=== PATIENT | male | born 1930 | race Caucasian/White ===

== ENCOUNTER 2018-09-24 00:16 | Observation (INO) | payer MEDICARE, OTHER ==
[2018-09-24 01:23] LABS: Troponin I Less than 0.010 ng/mL (< 0.028)
[2018-09-24] MEDS ORDERED: Ondansetron ODT 4 MG TAB SL PRN (04:51)
[2018-09-24] MEDS ORDERED: Acetaminophen 325 MG TAB PO PRN (04:51)
[2018-09-24] MEDS ORDERED: Ondansetron PF 4 MG/2 ML Vial IVP PRN (04:51)
[2018-09-24 05:26] VITALS: BMI 25.7
--- NOTE | 2018-09-24 07:12 | HP ---
PRIMARY CARE DOCTOR: Dr. Roverto Simms. CODE STATUS: Full code. TIME OF EVALUATION: 06:00 a.m. CHIEF COMPLAINT: High blood pressure and dizziness. HISTORY OF PRESENT ILLNESS: This is an 87-year-old male patient with past medical history of coronary artery disease, GERD, hypertension, came to the hospital after having an episode of sudden onset dizziness, associated with high blood pressure with no clear triggers, no alleviating factors associated, also with nausea, and vomiting. The patient got some treatment in [facility] but got no improvement and was transferred to the hospital here. The blood pressure got in control and symptoms have disappeared. The patient was examined by myself now, and the patient is in no distress, sleeping comfortable, symptoms on presentation were severe. REVIEW OF SYSTEMS: CONSTITUTIONAL: No fever, chills, or generalized weakness. RESPIRATORY: No cough, sputum production, or shortness of breath. CARDIOVASCULAR: No chest pain or palpitation. The patient has hypertension. GASTROINTESTINAL: The patient had nausea, vomiting. No diarrhea. No abdominal pain. UNPAID INTERN: The patient had dizziness, headache, feeling lightheaded, and also with unsteady gait due to dizziness. GENITOURINARY: No burning on urination. EXTREMITIES: No leg swelling. All other systems were reviewed and negative except for the findings mentioned above. PAST MEDICAL HISTORY: Was reviewed and then reported in HPI. PAST SURGICAL HISTORY: No surgical history. FAMILY HISTORY: Reviewed and noncontributory to current presentation. PSYCHIATRIC HISTORY: No history of suicidal ideation. No history of homicidal ideation. No psych history. SOCIAL HISTORY: No alcohol. No drugs. The patient is a former smoker. KNOWN ALLERGIES: Known allergy to penicillin. REPORTED MEDICATIONS: Aspirin, isosorbide, pantoprazole, and metoprolol. PHYSICAL EXAMINATION: VITAL SIGNS: On presentation, blood pressure 216/96, heart rate 62, respiratory rate was 18, temperature 97.9, pain 0/10, oxygen saturation 97% on room air. GENERAL APPEARANCE: The patient is alert, oriented, no acute distress. HEENT: Eyes, normal conjunctivae. Moist oral mucosa. Anicteric. No JVD. RESPIRATORY: Bilateral air entry. No rales. No wheezing. Symmetric expansion. CARDIOVASCULAR: Normal rate. Regular rhythm. No murmurs. No gallop. No edema. ABDOMEN: Soft. Normal bowel sounds. MUSCULOSKELETAL: Baseline range of motion and strength. SKIN: Warm and intact. No pallor. No rash. No redness. Capillary refill seems to be intact. NEURO: No evidence of any new focal weakness. Cranial nerves seem to be intact. PSYCH: The patient is in good mood. No anxiety. Optimal judgment. DIAGNOSTIC STUDIES: EKG was reviewed and had no evidence of ischemia, also discussed with the ER physician. Chest x-ray was reviewed. The patient had no evidence of acute cardiopulmonary disease. Brain CT was reviewed. The patient has no evidence of acute intracranial abnormalities. LABORATORY DATA: The labs were reviewed. The patient has a negative troponin. White count 9.3, hemoglobin 13, MCV 90, platelet count 182. Chemistry: Serum potassium 4.1, sodium 137, potassium 4.3, chloride 101, carbon dioxide 25, anion gap 15, BUN 12, creatinine 0.78, and glucose 139. LFTs were negative. Beta- natriuretic peptide 438, albumin 3.9. ASSESSMENT AND PLAN: The patient will be placed in the hospital with following medical problems: 1. Hypertensive urgency. The patient has some early stage of hypertensive encephalopathy with dizziness, blurred vision, nausea, vomiting; . The patient had no other significant symptoms, when I saw him, he was basically sleeping. We will control the blood pressure, reconcile home medications. 2. Deep vein thrombosis prophylaxis. 3. History of coronary artery disease, reported. Reconcile home medications. Adjust treatment as needed. As of now, there is no evidence of any cardiovascular damage. 4. History of gastroesophageal reflux disease, reconcile home medications. Job ID: [id number] MTDD
[2018-09-24] MEDS ORDERED: cloNIDine 0.1 MG TAB PO PRN (08:44)
[2018-09-24] MEDS ORDERED: Aspirin 81 mg Enteric Coated Tablet PO SCH (09:00)
[2018-09-24] MEDS ORDERED: Enoxaparin Sodium 40 MG/0.4 ML SYRINGE SC SCH (09:00)
[2018-09-24] MEDS ORDERED: Isosorbide Mononitrate 20 MG TAB PO SCH (09:00)
[2018-09-24 12:04] VITALS: BP 140/65; TEMP 98.2
--- NOTE | 2018-09-24 19:13 | DIS ---
DATE OF ADMISSION: 09/24/2018 DATE OF DISCHARGE: 09/24/2018 CHIEF COMPLAINT ON ADMISSION: Dizziness. DISCHARGE DIAGNOSES: 1. Hypertensive urgency, resolved. 2. Dizziness consistent with vertigo, unclear if related to above, also resolved. Differential includes hypertensive encephalopathy. 3. Gastroesophageal reflux disease. 4. Remote history of coronary artery disease, stable. BRIEF HOSPITAL COURSE: The patient is a very pleasant 87-year-old gentleman with past medical history significant for coronary artery disease and hypertension, who presented to the hospital after experiencing an episode of dizziness at home. Reports sudden onset of dizziness and felt as if the room were spinning. He found difficult to ambulate because of his symptoms. Associated symptoms included nausea and vomiting. He presented to [facility], and eventually was transferred to our facility for higher level of care. On arrival, the patient's blood pressure was 190/91. His presenting symptoms of dizziness have resolved at this time. The patient was given his home medications of metoprolol and isosorbide along with p.r.n. clonidine, with good response in the patient's blood pressure. The patient tells me he does have a history of vertigo in the past, which was relieved with meclizine. Upon my exam, the patient feels well, back to baseline. His blood pressure has been in the 140s systolic. Brain CT was negative for any intracranial abnormality. He has ambulated halls and is non-focal. Lab work was largely unremarkable, and his troponin was negative x2. DISPOSITION: Home. DISCHARGE CONDITION: Stable. DISCHARGE INSTRUCTIONS AND FOLLOWUP: The patient will be discharged home with new medications of p.r.n. clonidine as well as p.r.n. meclizine. The patient will continue to monitor his blood pressure at home and monitor his symptoms. He will follow up with his primary care physician, Dr. Van within the next week. The patient has ambulated in the halls today without any issue. He has had no further symptoms. The patient will be discharged home in good condition today. Job ID: [id number] [facility]
== END 2018-09-24 13:31 | disposition home or self-care (01) ==
LOC: ERS 00:16 → 2SW 00:55
PROVIDERS: ADMIT Hospitalist; ATTEND Hospitalist
DX: I16.0 Hypertensive urgency (principal); R42 Dizziness and giddiness; K21.9 Gastro-esophageal reflux disease without esophagitis; I25.10 Atherosclerotic heart disease of native coronary artery without angina pectoris; Z87.891 Personal history of nicotine dependence; Z88.0 Allergy status to penicillin; Z79.82 Long term (current) use of aspirin; Z79.899 Other long term (current) drug therapy
CPT/HCPCS: 36415; 84484; J1650

== ENCOUNTER 2018-09-24 17:11 | Inpatient (IN) | payer MEDICARE, OTHER ==
[2018-09-24 17:42] LABS: #Eosinphils 0.1 thou/uL (0.0-0.7); #Lymphocytes 1.2 thou/uL (1.20-3.40); #Monocytes 0.7 thou/uL (0.11-0.59); #Neutrophils 7.7 thou/uL (1.40-6.50); %Basophils 0.5 % (0.0-1.0); %Eosinophils 0.8 % (0.0-10.0); %Lymphocytes 12.1 % (21.0-51.0); %Monocytes 7.1 % (0.0-10.0); %Neutrophils 79.5 % (42.0-75.0); Hemoglobin 13.9 g/dL (14.0-18.0); Mean Corpuscular HGB CONC 34.3 g/dL (32.0-36.0); Mean Corpuscular Hemoglobin 32.4 pg (27.0-31.0); Mean Corpuscular Volume 94.4 fL (78.0-98.0); Mean Platelet Volume 7.5 fL (7.4-10.4); Platelet Count 193 thou/uL (130-400); RBC Distribution Width 11.7 % (11.5-14.5); Red Blood Cell (RBC) Count 4.29 mill/uL (4.70-6.10); White Blood Cell (WBC) Count 9.7 thou/uL (4.8-10.8)
[2018-09-24] MEDS ORDERED: niCARdipine 20MG In NaCl 20 MG/200 ML BAG ONE (17:57)
[2018-09-24] MEDS ORDERED: Aspirin Chewable 81 MG TAB ONE (17:57)
[2018-09-24 18:07] LABS: ALT (SGPT) 17 U/L (8-55); AST (SGOT) 20 U/L (5-34); Alkaline Phosphatase 74 U/L (40-150); Anion Gap 13 mmol/L (10-20); BUN (Urea Nitrogen) 14 mg/dL (8.4-25.7); Calc. Creatinine Clearance 0 mL/min (70-130); Calcium 9.1 mg/dL (7.8-10.44); Carbon Dioxide 26 mmol/L (23-31); Chloride 102 mmol/L (98-107); Estimated GFR-MDRD 83; Globulin 2.5 g/dL (2.4-3.5); Glucose 121 mg/dL (83-110); Potassium 4.1 mmol/L (3.5-5.1); Protein, Total 6.5 g/dL (5.8-8.1); Sodium 137 mmol/L (136-145)
--- NOTE | 2018-09-24 18:07 | CT ---
Exam: Head CT without contrast HISTORY: Vertigo. Dizziness. Altered mental status. COMPARISON: 09/23/2018 FINDINGS: Limited evaluation due to motion. Hemorrhage: No intraparenchymal hemorrhage or extra-axial hematoma. Brain parenchyma: Cortical hawthorne-white matter differentiation is preserved. No mass effect or midline shift. Basilar cisterns are patent.Stable chronic small vessel ischemic changes Ventricular system: Ventricles and sulci are patent and symmetric. Calvarium: Intact. Sinuses and mastoid air cells: Minimal left maxillary sinus disease. IMPRESSION: 1. No significant interval change. 2. No acute intracranial process. 3. Limited evaluation due to motion degradation.
[2018-09-24] MEDS ORDERED: Acetaminophen 325 MG TAB PO PRN (20:26)
[2018-09-24] MEDS ORDERED: Ondansetron PF 4 MG/2 ML Vial IVP PRN (20:26)
[2018-09-24] MEDS ORDERED: Acetaminophen 650 MG Suppository PR PRN (20:26)
[2018-09-24] MEDS ORDERED: Ondansetron ODT 4 MG TAB PO PRN (20:26)
[2018-09-24 20:35] LABS: Bilirubin Negative (Negative); Blood, Urine Negative (Negative); Clarity Clear (Clear); Glucose, Urine (Dipstick) Normal (Negative); Leukocyte Negative Leu/uL (Negative); Nitrite Negative (Negative); Protein, Urine (Dipstick) Negative (Neg-Trace); RBC/HPF 0-3 HPF (0-3); Squamous Epithelial 0-3 HPF (0-3); Urobilinogen Normal mg/dL (Less than 2); WBC/HPF 0-3 HPF (0-3)
[2018-09-24 20:39] LABS: Bacteria/HPF None Seen HPF (None Seen)
[2018-09-24 21:32] VITALS: BMI 24.9
[2018-09-24 21:34] LABS: Troponin I Less than 0.010 ng/mL (< 0.028)
--- NOTE | 2018-09-24 22:03 | HP ---
PRIMARY CARE PHYSICIAN: Kayce Steinberg MD CODE STATUS: Full code. TIME OF EVALUATION: 7:40 p.m. CHIEF COMPLAINT: Dizziness. HISTORY OF PRESENT ILLNESS: This is an 87-year-old male patient. The patient was recently discharged from the hospital. The patient presented yesterday with the same symptoms. Symptoms improved by self. I examined myself the patient earlier yesterday, and he was sleeping comfortable. No symptoms at all. The patient continued to do well, and he was discharged. Once he got the home, the patient had another episode of feeling very dizzy and feeling that he was about to fall, with no clear triggers. No alleviating factors. The symptoms started suddenly. This time, he has some associated chest pain, symptoms are severe, and he decided to come back to the hospital. REVIEW OF SYSTEMS: CONSTITUTIONAL: The patient had no fever or chills. The patient has generalized weakness. RESPIRATORY: No cough, sputum production, or shortness of breath. CARDIOVASCULAR: The patient has reported chest pain including symptoms and palpitations. GASTROINTESTINAL: Nausea. No vomiting, diarrhea, or abdominal pain. 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 The patient was feeling lightheaded. The patient has unsteady gait. No headache. GENITOURINARY: No burning on urination. EXTREMITIES: No leg swelling. All other systems were reviewed and negative except for the findings mentioned above. PAST MEDICAL HISTORY: Positive for coronary artery disease, GERD, hypertension. PAST SURGICAL HISTORY: The patient has no surgical history. PSYCHIATRIC HISTORY: No psych history. SOCIAL HISTORY: No alcohol. No drugs. Former smoker. The patient quit smoking more than 10 years ago. Lives with family. Very dependable. ALLERGIES: KNOWN ALLERGY TO PENICILLIN. REPORTED MEDICATIONS: 1. Aspirin. 2. Isosorbide mononitrate. 3. Pantoprazole. 4. Metoprolol. PHYSICAL EXAMINATION: VITAL SIGNS: On presentation blood pressure of 193/109 with heart rate 68, respiratory rate was 14, temperature 97.8, oxygen saturation was 95% on room air. GENERAL: The patient is alert, oriented, no acute distress. HEENT: Eyes, normal conjunctivae. Moist oral mucosa. Anicteric. No JVD. RESPIRATORY: Bilateral air entry. No rales. No wheezes. Symmetric expansion. CARDIOVASCULAR: Normal rate and regular rhythm. No murmurs. No gallop. No edema. ABDOMEN: Soft. Normal bowel sounds. MUSCULOSKELETAL: Baseline range of motion and strength. SKIN: Warm, intact. No pallor. No rash. No redness. Capillary refill seems to be intact. NEUROLOGIC: No evidence of any new focal weakness. Cranial nerves seem to be intact. PSYCH: The patient is in good mood. No anxiety. Optimal judgment. DIAGNOSTIC DATA: EKG, this patient has normal sinus rhythm with a rate of 65 with QT corrected at 449. Brain CT was done. The patient had no significant interval changes. No acute intracranial process. Limited evaluation due to motion degradation. LABORATORY DATA: Hematology; white count 9.7, hemoglobin 13.9, MCV 94.4, platelet count 193. Chemistry; sodium 137, potassium 4.1, chloride 102, carbon dioxide 26, anion gap 13, BUN 14, creatinine 0.87, GFR 83, glucose 121, calcium 9.1. Total bilirubin 1.0, AST 20, ALT 17, alkaline phosphatase 24. Troponin 0.023. Serum total protein 6.5 with albumin 4.0, globulin 2.5, albumin to globulin ratio is 1.6. Urine was done, was negative. ASSESSMENT AND PLAN: The patient will be placed in the hospital with following medical problems: 1. Hypertensive emergency. The patient presented with very high blood pressure and symptoms of dizziness, headache, feeling lightheaded. The patient also have some possible ataxia. The patient had been placed on Cardizem drip, and blood pressure has been in control. The patient has no symptoms at this point. The patient will be placed in ICU. We will monitor closely. The patient will receive echo, MRI, and carotid Doppler. Trying to find any source of possible stroke given the symptoms started suddenly. We will monitor closely. By the time of my examination, the patient is totally asymptomatic. Other etiology that will rule out will be arrhythmia. The patient will be placed on the monitor. 2. History of coronary artery disease, this problem is chronic, seems to be stable. We will trend troponins. 3. History of gastroesophageal reflux disease, reconcile home medications. 4. Deep venous thrombosis prophylaxis. Job ID: [id number]
[2018-09-24] MEDS ORDERED: niCARdipine 25 MG in Sodium Chloride 0.9% 250 ML 240 ML IVPB PRN (22:19)
[2018-09-25 00:25] LABS: Troponin I Less than 0.010 ng/mL (< 0.028)
[2018-09-25 04:20] LABS: #Eosinphils 0.2 thou/uL (0.0-0.7); #Lymphocytes 2.1 thou/uL (1.20-3.40); #Monocytes 0.8 thou/uL (0.11-0.59); #Neutrophils 4.5 thou/uL (1.40-6.50); %Basophils 0.6 % (0.0-1.0); %Eosinophils 2.8 % (0.0-10.0); %Monocytes 10.3 % (0.0-10.0); %Neutrophils 59.3 % (42.0-75.0); Hemoglobin 13.5 g/dL (14.0-18.0); Mean Corpuscular HGB CONC 34.1 g/dL (32.0-36.0); Mean Corpuscular Volume 93.9 fL (78.0-98.0); Mean Platelet Volume 7.6 fL (7.4-10.4); Platelet Count 179 thou/uL (130-400); RBC Distribution Width 11.6 % (11.5-14.5); Red Blood Cell (RBC) Count 4.21 mill/uL (4.70-6.10); White Blood Cell (WBC) Count 7.6 thou/uL (4.8-10.8)
[2018-09-25 04:36] LABS: Anion Gap 10 mmol/L (10-20); BUN (Urea Nitrogen) 16 mg/dL (8.4-25.7); Calc. Creatinine Clearance 61 mL/min (70-130); Calcium 9.3 mg/dL (7.8-10.44); Carbon Dioxide 27 mmol/L (23-31); Cardiac Risk 2.9 (Less than 4.5); Chloride 106 mmol/L (98-107); Cholesterol 165 mg/dl (< 200 Desired); Estimated GFR-MDRD Greater than 90; Glucose 103 mg/dL (83-110); HDL Cholesterol 57 mg/dL (>60 Neg Risk); LDL Cholesterol, Calculated 92 mg/dL; Potassium 4.1 mmol/L (3.5-5.1); Sodium 139 mmol/L (136-145); Triglycerides 81 mg/dL (Less than 150)
[2018-09-25] MEDS ORDERED: MECLIZINE HCL 25 MG PO PRN (06:51)
[2018-09-25] MEDS ORDERED: cloNIDine 0.1 MG TAB PO PRN (06:51)
[2018-09-25] MEDS ORDERED: Sodium Chloride 0.65% Nasal 44 ML BOT EA NARE PRN (06:52)
[2018-09-25] MEDS ORDERED: Bisacodyl 10 MG SUPP PR PRN (06:52)
[2018-09-25] MEDS ORDERED: Artificial Tears 18 DROP/0.9 ML EA EYE PRN (06:52)
[2018-09-25] MEDS ORDERED: Loratadine 10 MG TAB PO PRN (06:52)
[2018-09-25] MEDS ORDERED: Diabetic Tussin 200 MG/10 ML UDCUP PO PRN (06:52)
[2018-09-25] MEDS ORDERED: Senokot S 8.6-50 MG TAB PO PRN (06:52)
[2018-09-25] MEDS ORDERED: Cepastat Lozenges 1 LOZ PO PRN (06:52)
[2018-09-25] MEDS ORDERED: Calcium Carbonate 500 MG ChewTAB PO PRN (06:52)
[2018-09-25] MEDS ORDERED: hydrALAZINE 20 MG/ML VIAL SLOW IVP PRN (06:52)
[2018-09-25] MEDS ORDERED: Loperamide HCl 2 MG CAP PO PRN (06:52)
[2018-09-25] MEDS ORDERED: Meclizine HCl 25 MG TAB PO PRN (07:13)
--- NOTE | 2018-09-25 07:58 | ULT ---
EXAM: Carotid vascular duplex with color and spectral Doppler imaging: HISTORY: TIA COMPARISON: None FINDINGS: Evidence for intimal thickening of both proximal ICAs. Right ICA: PSV: 85 cm/s EDV: 19 cm/s ICA/CCA ratio: 1.3 Left ICA: PSV: 107 cm/s EDV: 28 cm/s ICA/CCA ratio: 1.2 Antegrade flow is seen in both vertebral arteries.. IMPRESSION: No evidence for hemodynamically significant ICA stenosis. 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
[2018-09-25] MEDS: Enoxaparin Sodium 40 MG/0.4 ML SYRINGE SC SCH (09:09)
[2018-09-25] MEDS: Aspirin 81 mg Enteric Coated Tablet PO SCH (09:09)
[2018-09-25] MEDS: Aspirin 300 MG Suppository PR SCH (09:10)
[2018-09-25] MEDS: Isosorbide Mononitrate 20 MG TAB PO SCH ×2 (09:30→20:51)
--- NOTE | 2018-09-25 10:03 | MRI ---
MRI BRAIN WITHOUT CONTRAST: Date: 09/25/18 Multiplanar, multisequential imaging of brain obtained. INDICATION: Vertigo, dizziness, altered mental status. TIA. FINDINGS: There is mild cortical volume loss. Moderate chronic ischemic white matter changes noted in both cere bral hemispheres. No evidence of restricted diffusion. No evidence of acute infarct or mass. 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 The intracranial internal carotid arteries and proximal cerebral arteries demonstrate expected flow-v oids. Basilar artery shows expected flow-void. Paranasal sinuses appear clear. IMPRESSION: Moderate chronic ischemic white matter changes. No acute process identified. POS: OFF
--- NOTE | 2018-09-25 11:47 | PDOC.PN ---
- Subjective Encounter Start Date: 09/25/18 Encounter Start Time: 10:20 -: old records requested/rev Patient seen and examined. No new complaints. No overnight events - Objective Resuscitation Status - Order Detail: 09/24/18 20:26 Resuscitation Status Routine Resuscitation Status: DNAR: NO Resuscitation Discussed with: as stated by pt MAR Reviewed: Yes Vital Signs & Weight: Vital Signs (12 hours) Temp 09/25/18 08:00 98.3 F 09/25/18 04:00 98.4 F 09/25/18 00:00 98.1 F Weight Weight 149 lb 14.629 oz Most Recent Monitor Data Heart Rate from ECG 65 NIBP 176/81 NIBP BP-Mean 112 Respiration from ECG 17 SpO2 94 I&O: 09/24/18 09/25/18 09/26/18 06:59 06:59 06:59 Intake Total 0 360 Output Total 250 180 Balance -250 180 Result Diagrams: 09/25/18 04:08 09/25/18 04:08 EKG Reviewed by me: Yes Phys Exam - Physical Examination Constitutional: NAD HEENT: PERRLA, moist MMs, sclera anicteric Neck: no JVD, supple Respiratory: no wheezing, no rales, no rhonchi Cardiovascular: RRR, no significant murmur, no rub Gastrointestinal: soft, non-tender, no distention, positive bowel sounds Musculoskeletal: no edema, pulses present Neurological: non-focal, normal sensation Psychiatric: normal affect, A&O x 3 Skin: no rash, normal turgor Dx/Plan (1) Dizziness Code(s): R42 - DIZZINESS AND GIDDINESS Status: Acute (2) Hypertensive emergency Code(s): I16.1 - HYPERTENSIVE EMERGENCY Status: Acute (3) CAD (coronary artery disease) Code(s): I25.10 - ATHSCL HEART DISEASE OF [place] CORONARY ARTERY W/O ANG PCTRS Status: Chronic (4) GERD (gastroesophageal reflux disease) Code(s): K21.9 - GASTRO-ESOPHAGEAL REFLUX DISEASE WITHOUT ESOPHAGITIS Status: Chronic (5) Hypertension Code(s): I10 - ESSENTIAL (PRIMARY) HYPERTENSION Status: Chronic - Plan cont current plan of care * pt is off cardene drip * MRI, carotid US are normal * transfer to stroke floor * start PT/OT * adjust BP meds today * expecting discharge tomorrow * medication reviewed as below * symptomatic treatment. Review of Systems - Review of Systems ENT: negative: Ear Pain, Ear Discharge, Nose Pain, Nose Discharge, Nose Congestion, Mouth Pain, Mouth Swelling, Throat Pain, Throat Swelling, Other Respiratory: negative: Cough, Dry, Shortness of Breath, Hemoptysis, SOB with Excertion, Pleuritic Pain, Sputum, Wheezing Cardiovascular: negative: chest pain, palpitations, orthopnea, paroxysmal nocturnal dyspnea, edema, light headedness, other Gastrointestinal: negative: Nausea, Vomiting, Abdominal Pain, Diarrhea, Constipation, Melena, Hematochezia, Other Genitourinary: negative: Dysuria, Frequency, Incontinence, Hematuria, Retention , Other Musculoskeletal: negative: Neck Pain, Shoulder Pain, Arm Pain, Back Pain, Hand Pain, Leg Pain, Foot Pain, Other - Medications/Allergies Allergies/Adverse Reactions: Allergies Allergy/AdvReac Type Severity Reaction Status Date / Time Penicillins Allergy Unknown Verified 09/24/18 21:21 Medications: Current Medications Acetaminophen (Tylenol) 650 mg PO Q4H PRN PRN Reason: Headache/Fever/Mild Pain (1-3) Acetaminophen (Tylenol) 650 mg FL Q4H PRN PRN Reason: Headache/Fever/Mild Pain (1-3) Artificial Tears (Tears Naturale) 2 drop EA EYE PRN PRN PRN Reason: Dry Eyes Aspirin (Aspirin) 300 mg FL DAILY [facility] Last Admin: 09/25/18 09:10 Dose: Not Given Aspirin (Ecotrin) 81 mg PO DAILY [facility] Last Admin: 09/25/18 09:09 Dose: 81 mg Bisacodyl (Dulcolax) 10 mg FL DAILYPRN PRN PRN Reason: Constipation Calcium Carbonate (Tums) 1,000 mg PO Q4H PRN PRN Reason: Heartburn or Indigestion Clonidine (Catapres) 0.1 mg PO Q4H PRN PRN Reason: SBP Greater Than 180 Enoxaparin Sodium (Lovenox) 40 mg SC 09 [facility] Last Admin: 09/25/18 09:09 Dose: 40 mg Guaifenesin (Robitussin Sf) 200 mg PO Q4H PRN PRN Reason: Cough Hydralazine HCl (Apresoline) 10 mg SLOW IVP Q4H PRN PRN Reason: SBP > 180 and HR < 70 Nicardipine HCl 25 mg/ Sodium (Chloride) 250 mls @ 0 mls/hr IVPB INF PRN; Protocol PRN Reason: SBP > 150 Isosorbide Mononitrate (Ismo) 20 mg PO BID [facility] Last Admin: 09/25/18 09:30 Dose: 20 mg Loperamide HCl (Imodium) 2 mg PO PRN PRN PRN Reason: Diarrhea/Loose Stools Loratadine (Claritin) 10 mg PO DAILYPRN PRN PRN Reason: Sinus Symptoms Meclizine HCl (Antivert) 25 mg PO TIDPRN PRN PRN Reason: Dizziness Metoprolol Succinate (Toprol Xl) 50 mg PO BID [facility] Last Admin: 09/25/18 09:09 Dose: 50 mg Ondansetron HCl (Zofran Odt) 4 mg PO Q6H PRN PRN Reason: Nausea/Vomiting Ondansetron HCl (Zofran) 4 mg IVP Q6H PRN PRN Reason: Nausea/Vomiting Pantoprazole Sodium (Protonix) 40 mg PO DAILY [facility] Last Admin: 09/25/18 09:09 Dose: 40 mg Senna/Docusate Sodium (Senokot S) 2 tab PO BID PRN PRN Reason: Constipation Sodium Chloride (Flush - Normal Saline) 10 ml IVF PRN PRN PRN Reason: Saline Flush Sodium Chloride ([place] Nasal [place] 0.65%) 0 ml EA NARE QIDPRN PRN PRN Reason: Nasal Congestion Throat Lozenges (Cepastat Lozenges) 1 abraham PO Q2H PRN PRN Reason: Sore Throat
--- NOTE | 2018-09-25 13:37 | CON ---
DATE OF CONSULTATION: CHIEF COMPLAINT: Possible stroke. HISTORY OF PRESENT ILLNESS: The patient is an 87-year-old man, who was brought in to the hospital following symptoms of TIA. He felt drunk. He felt that the room was swirling and this happened on September 23 and he did have one episode in the past when he was dehydrated, but this episode was more profound and stronger per the patient and he was brought here to the hospital by the family and there was no history of any weakness, numbness, or incoordination, but he felt like he was about to fall. No loss of consciousness was associated with this. He did have some chest pain and his symptoms were sudden onset. There was no history of visual problems either. PREVIOUS MEDICAL HISTORY: Positive for coronary artery disease, gastroesophageal reflux disease, and hypertension. SURGICAL HISTORY: He had cataract surgery a few years ago with intra-ocular lens implant and he thinks this might have been 5 to 6 years ago. SOCIAL HISTORY: Nonsmoker. He does not drink alcohol. 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 He lives with his . ALLERGIES: HE IS ALLERGIC TO PENICILLIN AND STATED THAT THE PATIENT HAD HIVES WITH IT AND THIS OCCURRED WHEN HE WAS IN THE [employer] AND HE WAS TOLD TO STAY AWAY FROM IT. FAMILY HISTORY: Negative for any history of stroke. MEDICATIONS: At home he takes, 1. Aspirin. 2. Isosorbide mononitrate. 3. Pantoprazole. 4. Metoprolol. REVIEW OF SYSTEMS: PULMONARY: Negative for shortness of breath or cough. GI: Negative for diarrhea, vomiting, or nausea. GENITOURINARY: Negative for any urinary dysfunction. OPHTHALMOLOGIC: Negative for any visual disturbance. NEUROLOGICAL: Positive for dizziness. ENT: Negative for any ringing in his ears or hearing loss. HEMATOLOGIC: Negative for bleeding diathesis or anemia. LABORATORY WORKUP: White count 7.6, hemoglobin 13.5, hematocrit 39.6, platelets 179. Sodium 139, potassium 4.1, chloride 106, bicarb 27, BUN 16, creatinine 0.8, glucose 103, and calcium 9.3. AST, ALT, alkaline phosphatase within normal limits. Lipid profile was within normal limits. His MRI of the brain did not show an acute stroke. He had moderate chronic ischemic white matter changes, and on the carotid Doppler study, he did not have any carotid artery disease and no stenosis was noted. PHYSICAL EXAMINATION: VITAL SIGNS: Blood pressure 176/81, pulse is 63, respiratory rate 19, and he was afebrile, temperature 98.3. GENERAL APPEARANCE: Well-built, well-nourished man, who appears comfortable in the bed. CHEST: Clear vesicular breathing. CARDIOVASCULAR: S1 and S2 heard. No murmurs. ABDOMEN: Soft and nontender. No organomegaly noted. NEUROLOGIC: Higher intellectual functions. Normal orientation to time, place, and person. Appropriate conversation. Cranial nerves, normal extraocular movements. Pupils are 2 mm, reactive bilaterally to light. No facial asymmetry noted. Normal sensation of face bilaterally and hearing was normal. Tongue midline. No atrophy noted. Normal elevation of palate. Motor, bulk normal, tone normal. Strength 5/5 throughout in upper and lower extremities in iliopsoas, hamstrings, quadriceps, ankle dorsiflexion, plantarflexion, deltoid, biceps, triceps, wrist extension and flexion, finger extension and flexion bilaterally. Deep tendon reflexes 2+ throughout in upper and lower extremities. Sensory examination normal to touch bilaterally. Cerebellar, normal [id number], [id number]. IMPRESSION: The patient who is being admitted with hypertensive emergency and posterior reversible encephalopathy syndrome as admitting diagnosis. His blood pressures have remained somewhat high through this admission and his symptoms were mainly dizziness. His MRI is negative for an acute stroke and his carotid Doppler is normal and his diagnosis is most likely consistent with hypertensive emergency rather than an acute stroke. RECOMMENDATIONS: For now, continue to give him anti-platelet agent aspirin at the same dose. Monitor his blood pressure and revise his antihypertensive regimen. He also is pending echocardiogram at this time. Please call Neurology and we will see him as needed. Job ID: [id number]
--- NOTE | 2018-09-25 18:51 | CON ---
DATE OF CONSULTATION: 09/25/2018 HISTORY OF PRESENT ILLNESS: Mr. Porter is an 87-year-old male, who was admitted to the critical care unit this morning. I was consulted because of his presence in the Critical Care. He presented with complaints of dizziness. He was noted to be hypertensive, apparently was started on a Cardene drip. The Cardene drip has since been weaned off. He has no complaints at the time of my evaluation. He had an MRI of his brain that showed white matter changes, but nothing acute. He has had a carotid Doppler that showed no obstruction. PAST MEDICAL HISTORY: Remarkable for, 1. Coronary artery disease. 2. History of reflux disease. 3. History of hypertension. 4. History of an June visit to the emergency room with hypertension. 5. History of no surgeries in the past, which is surprising. SOCIAL HISTORY: He is a former smoker, but smoked until he was in his late 70s. He is not a drinker. ALLERGIES: HE REPORTS PENICILLIN ALLERGY. MEDICATIONS: Have been reviewed. FAMILY HISTORY: Negative for lung disease in early age. REVIEW OF SYSTEMS: Ten point review of systems completed, otherwise negative. PHYSICAL EXAMINATION: VITAL SIGNS: Blood pressure is 156/86 in afternoon, heart rate was in the 60s, respiratory rate was 16, oximetry is 93% on room air. He is afebrile. HEENT: Pupils are equal. Sclerae are anicteric. Extraocular movements are intact. NECK: Supple. No lymphadenopathy. LUNGS: Clear. HEART: Regular rhythm. He has grade 2/6 systolic murmur. ABDOMEN: Soft and nontender. EXTREMITIES: Without clubbing, cyanosis, or edema. NEUROLOGIC: Grossly nonfocal. IMPRESSION: Dizziness with hypertension that is reasonably well controlled presently. He is stable to move out of the Critical Care Unit. We will sign off on transfer. TIME SPENT: This is a 70-minute consult, with greater than 50% of the time was spent on the unit coordinating care. Job ID: [id number] [facility]
[2018-09-26] MEDS: Lisinopril 10 MG TAB PO SCH (08:36)
[2018-09-26] MEDS: Isosorbide Mononitrate 20 MG TAB PO SCH ×2 (08:36→21:23)
[2018-09-26] MEDS: Aspirin 81 mg Enteric Coated Tablet PO SCH (08:36)
[2018-09-26] MEDS: Enoxaparin Sodium 40 MG/0.4 ML SYRINGE SC SCH (08:37)
[2018-09-26] MEDS: Aspirin 300 MG Suppository PR SCH (08:38)
[2018-09-26] MEDS ORDERED: Lisinopril/Hydrochlorothiazide 10 mg/12.5 mg Tablet PO SCH (09:00)
--- NOTE | 2018-09-26 10:07 | PDOC.PN ---
- Subjective Encounter Start Date: 09/26/18 Encounter Start Time: 07:10 Patient seen and examined. No new complaints. No overnight events - Objective Resuscitation Status - Order Detail: 09/24/18 20:26 Resuscitation Status Routine Resuscitation Status: DNAR: NO Resuscitation Discussed with: as stated by pt MAR Reviewed: Yes Vital Signs & Weight: Vital Signs (12 hours) Temp Pulse Resp BP Pulse Ox 09/26/18 07:46 98.0 F 69 16 176/95 H 92 L 09/26/18 04:00 97.9 F 64 18 147/78 H 94 L 09/26/18 00:00 98.4 F 63 18 150/77 H 94 L Weight Weight 149 lb 14.629 oz Most Recent Monitor Data Heart Rate from ECG 88 NIBP 176/81 NIBP BP-Mean 112 Respiration from ECG 15 SpO2 94 I&O: 09/25/18 09/26/18 09/27/18 06:59 06:59 06:59 Intake Total 0 630 480 Output Total 250 180 Balance -250 450 480 Result Diagrams: 09/25/18 04:08 09/25/18 04:08 EKG Reviewed by me: Yes Phys Exam - Physical Examination Constitutional: NAD HEENT: PERRLA, moist MMs, sclera anicteric Neck: no JVD, supple Respiratory: no wheezing, no rales, no rhonchi Cardiovascular: RRR, no significant murmur, no rub Gastrointestinal: soft, non-tender, no distention, positive bowel sounds Musculoskeletal: no edema, pulses present Neurological: non-focal, normal sensation, moves all 4 limbs Lymphatic: no nodes Psychiatric: normal affect, A&O x 3 Skin: no rash, normal turgor Dx/Plan (1) Dizziness Code(s): R42 - DIZZINESS AND GIDDINESS Status: Acute (2) Hypertensive emergency Code(s): I16.1 - HYPERTENSIVE EMERGENCY Status: Acute (3) CAD (coronary artery disease) Code(s): I25.10 - ATHSCL HEART DISEASE OF [place] CORONARY ARTERY W/O ANG PCTRS Status: Chronic (4) GERD (gastroesophageal reflux disease) Code(s): K21.9 - GASTRO-ESOPHAGEAL REFLUX DISEASE WITHOUT ESOPHAGITIS Status: Chronic (5) Hypertension Code(s): I10 - ESSENTIAL (PRIMARY) HYPERTENSION Status: Chronic - Plan cont current plan of care, PT/OT, out of bed/ambulate * neurology recommendation appreciated * medication reviewed as below * symptomatic treatment * add lisinopril * today will adjust his BP meds * ambulate as tolerated. Review of Systems - Review of Systems ENT: negative: Ear Pain, Ear Discharge, Nose Pain, Nose Discharge, Nose Congestion, Mouth Pain, Mouth Swelling, Throat Pain, Throat Swelling, Other Respiratory: negative: Cough, Dry, Shortness of Breath, Hemoptysis, SOB with Excertion, Pleuritic Pain, Sputum, Wheezing Cardiovascular: negative: chest pain, palpitations, orthopnea, paroxysmal nocturnal dyspnea, edema, light headedness, other Gastrointestinal: negative: Nausea, Vomiting, Abdominal Pain, Diarrhea, Constipation, Melena, Hematochezia, Other Genitourinary: negative: Dysuria, Frequency, Incontinence, Hematuria, Retention , Other Musculoskeletal: negative: Neck Pain, Shoulder Pain, Arm Pain, Back Pain, Hand Pain, Leg Pain, Foot Pain, Other - Medications/Allergies Allergies/Adverse Reactions: Allergies Allergy/AdvReac Type Severity Reaction Status Date / Time Penicillins Allergy Unknown Verified 09/24/18 21:21 Medications: Current Medications Acetaminophen (Tylenol) 650 mg PO Q4H PRN PRN Reason: Headache/Fever/Mild Pain (1-3) Acetaminophen (Tylenol) 650 mg AL Q4H PRN PRN Reason: Headache/Fever/Mild Pain (1-3) Artificial Tears (Tears Naturale) 2 drop EA EYE PRN PRN PRN Reason: Dry Eyes Aspirin (Aspirin) 300 mg AL DAILY [facility] Last Admin: 09/26/18 08:38 Dose: Not Given Aspirin (Ecotrin) 81 mg PO DAILY [facility] Last Admin: 09/26/18 08:36 Dose: 81 mg Bisacodyl (Dulcolax) 10 mg AL DAILYPRN PRN PRN Reason: Constipation Calcium Carbonate (Tums) 1,000 mg PO Q4H PRN PRN Reason: Heartburn or Indigestion Clonidine (Catapres) 0.1 mg PO Q4H PRN PRN Reason: SBP Greater Than 180 Enoxaparin Sodium (Lovenox) 40 mg SC 0900 [facility] Last Admin: 09/26/18 08:37 Dose: 40 mg Guaifenesin (Robitussin Sf) 200 mg PO Q4H PRN PRN Reason: Cough Hydralazine HCl (Apresoline) 10 mg SLOW IVP Q4H PRN PRN Reason: SBP > 180 and HR < 70 Isosorbide Mononitrate (Ismo) 20 mg PO BID [facility] Last Admin: 09/26/18 08:36 Dose: 20 mg Lisinopril (Zestril) 10 mg PO DAILY [facility] Last Admin: 09/26/18 08:36 Dose: 10 mg Loperamide HCl (Imodium) 2 mg PO PRN PRN PRN Reason: Diarrhea/Loose Stools Loratadine (Claritin) 10 mg PO DAILYPRN PRN PRN Reason: Sinus Symptoms Meclizine HCl (Antivert) 25 mg PO TIDPRN PRN PRN Reason: Dizziness Metoprolol Succinate (Toprol Xl) 50 mg PO BID [facility] Last Admin: 09/26/18 08:37 Dose: 50 mg Ondansetron HCl (Zofran Odt) 4 mg PO Q6H PRN PRN Reason: Nausea/Vomiting Ondansetron HCl (Zofran) 4 mg IVP Q6H PRN PRN Reason: Nausea/Vomiting Pantoprazole Sodium (Protonix) 40 mg PO DAILY [facility] Last Admin: 09/26/18 08:37 Dose: 40 mg Senna/Docusate Sodium (Senokot S) 2 tab PO BID PRN PRN Reason: Constipation Sodium Chloride (Flush - Normal Saline) 10 ml IVF PRN PRN PRN Reason: Saline Flush Sodium Chloride ([place] Nasal [place] 0.65%) 0 ml EA NARE QIDPRN PRN PRN Reason: Nasal Congestion Throat Lozenges (Cepastat Lozenges) 1 abraham PO Q2H PRN PRN Reason: Sore Throat
--- NOTE | 2018-09-26 22:10 | EKG ---
Test Reason : DIZZINESS Blood Pressure : / mmHG Vent. Rate : 065 BPM Atrial Rate : 065 BPM P-R Int : 170 ms QRS Dur : 084 ms QT Int : 432 ms P-R-T Axes : 078 048 028 degrees QTc Int : 449 ms Normal sinus rhythm Normal ECG Confirmed by ESTRELLA BOYCE ([id number]), magazine editor VIC RAY ([id number]) on 09/26/2018 10:09:24 PM Referred By: CARLI Confirmed By:ESTRELLA BOYCE
[2018-09-27 07:39] VITALS: BP 169/81; TEMP 98
[2018-09-27] MEDS: Isosorbide Mononitrate 20 MG TAB PO SCH (08:42)
[2018-09-27] MEDS: Aspirin 81 mg Enteric Coated Tablet PO SCH (08:42)
[2018-09-27] MEDS: Enoxaparin Sodium 40 MG/0.4 ML SYRINGE SC SCH (08:42)
[2018-09-27] MEDS: Lisinopril 10 MG TAB PO SCH (08:43)
[2018-09-27] MEDS: Aspirin 300 MG Suppository PR SCH (08:43)
[2018-09-27] MEDS ORDERED: Amlodipine 10 MG TAB PO SCH (09:00)
--- NOTE | 2018-09-27 09:57 | PDOC.PN ---
- Subjective Encounter Start Date: 09/27/18 Encounter Start Time: 09:40 Patient seen and examined. No new complaints. No overnight events - Objective Resuscitation Status - Order Detail: 09/24/18 20:26 Resuscitation Status Routine Resuscitation Status: DNAR: NO Resuscitation Discussed with: as stated by pt MAR Reviewed: Yes Vital Signs & Weight: Vital Signs (12 hours) Temp Pulse Resp BP Pulse Ox 09/27/18 08:42 65 09/27/18 07:39 98 F 65 16 169/81 H 92 L 09/27/18 04:00 98.1 F 66 16 156/86 H 94 L Weight Weight 149 lb 14.629 oz Most Recent Monitor Data Heart Rate from ECG 88 NIBP 176/81 NIBP BP-Mean 112 Respiration from ECG 15 SpO2 94 I&O: 09/26/18 09/27/18 09/28/18 06:59 06:59 06:59 Intake Total 630 840 Output Total 180 Balance 450 840 Result Diagrams: 09/25/18 04:08 09/25/18 04:08 Phys Exam - Physical Examination Constitutional: NAD HEENT: PERRLA, moist MMs, sclera anicteric Neck: no JVD, supple Respiratory: no wheezing, no rales, no rhonchi Cardiovascular: RRR, no significant murmur, no rub Gastrointestinal: soft, non-tender, no distention, positive bowel sounds Musculoskeletal: no edema, pulses present Neurological: non-focal, normal sensation, moves all 4 limbs Lymphatic: no nodes Psychiatric: normal affect, A&O x 3 Skin: no rash, normal turgor Dx/Plan (1) Dizziness Code(s): R42 - DIZZINESS AND GIDDINESS Status: Acute (2) Hypertensive emergency Code(s): I16.1 - HYPERTENSIVE EMERGENCY Status: Acute (3) CAD (coronary artery disease) Code(s): I25.10 - ATHSCL HEART DISEASE OF [place] CORONARY ARTERY W/O ANG PCTRS Status: Chronic (4) GERD (gastroesophageal reflux disease) Code(s): K21.9 - GASTRO-ESOPHAGEAL REFLUX DISEASE WITHOUT ESOPHAGITIS Status: Chronic (5) Hypertension Code(s): I10 - ESSENTIAL (PRIMARY) HYPERTENSION Status: Chronic - Plan cont current plan of care * medication reviewed as below * symptomatic treatment * see discharge [place]. Review of Systems - Review of Systems ENT: negative: Ear Pain, Ear Discharge, Nose Pain, Nose Discharge, Nose Congestion, Mouth Pain, Mouth Swelling, Throat Pain, Throat Swelling, Other Respiratory: negative: Cough, Dry, Shortness of Breath, Hemoptysis, SOB with Excertion, Pleuritic Pain, Sputum, Wheezing Cardiovascular: negative: chest pain, palpitations, orthopnea, paroxysmal nocturnal dyspnea, edema, light headedness, other Gastrointestinal: negative: Nausea, Vomiting, Abdominal Pain, Diarrhea, Constipation, Melena, Hematochezia, Other Genitourinary: negative: Dysuria, Frequency, Incontinence, Hematuria, Retention , Other Musculoskeletal: negative: Neck Pain, Shoulder Pain, Arm Pain, Back Pain, Hand Pain, Leg Pain, Foot Pain, Other - Medications/Allergies Allergies/Adverse Reactions: Allergies Allergy/AdvReac Type Severity Reaction Status Date / Time Penicillins Allergy Unknown Verified 09/24/18 21:21 Medications: Current Medications Acetaminophen (Tylenol) 650 mg PO Q4H PRN PRN Reason: Headache/Fever/Mild Pain (1-3) Acetaminophen (Tylenol) 650 mg MO Q4H PRN PRN Reason: Headache/Fever/Mild Pain (1-3) Amlodipine Besylate (Norvasc) 10 mg PO DAILY [facility] Last Admin: 09/27/18 08:42 Dose: 10 mg Artificial Tears (Tears Naturale) 2 drop EA EYE PRN PRN PRN Reason: Dry Eyes Aspirin (Aspirin) 300 mg MO DAILY [facility] Last Admin: 09/27/18 08:43 Dose: Not Given Aspirin (Ecotrin) 81 mg PO DAILY [facility] Last Admin: 09/27/18 08:42 Dose: 81 mg Bisacodyl (Dulcolax) 10 mg MO DAILYPRN PRN PRN Reason: Constipation Calcium Carbonate (Tums) 1,000 mg PO Q4H PRN PRN Reason: Heartburn or Indigestion Clonidine (Catapres) 0.1 mg PO Q4H PRN PRN Reason: SBP Greater Than 180 Enoxaparin Sodium (Lovenox) 40 mg SC 0900 [facility] Last Admin: 09/27/18 08:42 Dose: 40 mg Guaifenesin (Robitussin Sf) 200 mg PO Q4H PRN PRN Reason: Cough Hydralazine HCl (Apresoline) 10 mg SLOW IVP Q4H PRN PRN Reason: SBP > 180 and HR < 70 Isosorbide Mononitrate (Ismo) 20 mg PO BID [facility] Last Admin: 09/27/18 08:42 Dose: 20 mg Lisinopril (Zestril) 10 mg PO DAILY [facility] Last Admin: 09/27/18 08:43 Dose: 10 mg Loperamide HCl (Imodium) 2 mg PO PRN PRN PRN Reason: Diarrhea/Loose Stools Loratadine (Claritin) 10 mg PO DAILYPRN PRN PRN Reason: Sinus Symptoms Meclizine HCl (Antivert) 25 mg PO TIDPRN PRN PRN Reason: Dizziness Metoprolol Succinate (Toprol Xl) 50 mg PO BID [facility] Last Admin: 09/27/18 08:43 Dose: 50 mg Ondansetron HCl (Zofran Odt) 4 mg PO Q6H PRN PRN Reason: Nausea/Vomiting Ondansetron HCl (Zofran) 4 mg IVP Q6H PRN PRN Reason: Nausea/Vomiting Pantoprazole Sodium (Protonix) 40 mg PO DAILY [facility] Last Admin: 09/27/18 08:42 Dose: 40 mg Senna/Docusate Sodium (Senokot S) 2 tab PO BID PRN PRN Reason: Constipation Sodium Chloride (Flush - Normal Saline) 10 ml IVF PRN PRN PRN Reason: Saline Flush Sodium Chloride ([place] Nasal [place] 0.65%) 0 ml EA NARE QIDPRN PRN PRN Reason: Nasal Congestion Throat Lozenges (Cepastat Lozenges) 1 abraham PO Q2H PRN PRN Reason: Sore Throat
--- NOTE | 2018-09-27 10:32 | DIS ---
DATE OF ADMISSION: 09/24/2018 DATE OF DISCHARGE: 09/27/2018 PRIMARY CARE PHYSICIAN: [facility] Call admission. DISCHARGE DISPOSITION: Home. PRIMARY DISCHARGE DIAGNOSES: 1. Hypertensive emergency. 2. Dizziness due to problem #1. SECONDARY DISCHARGE DIAGNOSES: Hypertension, gastroesophageal reflux disease, and coronary artery disease. PRIMARY PROCEDURE/OPERATION: None. RADIOLOGICAL INVESTIGATION: CT brain, MRI brain, and carotid Doppler. SIGNIFICANT LABORATORY DATA: Hemoglobin 13.5, creatinine 0.80. Electrolytes normal. Cardiac enzyme negative. LFT normal. LDL 92. Urinalysis normal. DISCHARGE MEDICATIONS: 1. Aspirin 81 mg daily. 2. Isosorbide mononitrate 20 mg b.i.d. 3. Toprol-XL 50 mg b.i.d. 4. Protonix 40 mg daily. 5. Amlodipine 10 mg p.o. daily. 6. Lisinopril 10 mg p.o. daily. 7. Clonidine 0.1 mg q.4 hourly p.r.n. 8. Antivert 25 mg t.i.d. p.r.n. CONTRAINDICATION: None. CODE STATUS: DNR. INPATIENT CONSULTANTS: Dr. Indira Umaña and Dr. Kruger. TEST RESULTS PENDING ON DISCHARGE: None. ALLERGIES: PENICILLIN. DISCHARGE PLAN: Posthospital, the patient will follow up with primary care physician in 1 week. HOSPITAL COURSE: An 87-year-old male, who was admitted by Dr. Hewitt. Please see his H and P for further details. This patient was having very high blood pressure. He was just discharged from hospital, and he was having severe dizziness and head discomfort and that is why he bounced back to us in hospital. Initially, CT of brain was negative. MRI of brain was also negative for any stroke. Carotid Doppler negative for any stenosis. This patient's blood pressure was controlled with Cardene drip and subsequently, the patient was transferred to telemetry floor. His stroke workup came back negative. Neurology saw this patient and they recommended to continue his previous medication. Dr. Kruger saw because the patient was admitted in ICU. We added lisinopril and amlodipine for his better blood pressure control. The patient is completely asymptomatic at this point and he wants to go home. Overall, the patient is medically stable for discharge. The patient is seen and examined at bedside today. Please see my progress note from today for further detail. Job ID: [id number]
== END 2018-09-27 10:59 | disposition home or self-care (01) | DRG 305 ==
LOC: ERS 17:11 → CCU 18:56 → 2SE 09-25 13:18
PROVIDERS: ADMIT Internal Medicine; ATTEND Internal Medicine
DX: I16.1 Hypertensive emergency (principal); Z66 Do not resuscitate; I25.10 Atherosclerotic heart disease of native coronary artery without angina pectoris; K21.9 Gastro-esophageal reflux disease without esophagitis; I10 Essential (primary) hypertension; Z87.891 Personal history of nicotine dependence; Z88.0 Allergy status to penicillin; Z79.82 Long term (current) use of aspirin; Z79.899 Other long term (current) drug therapy
CPT/HCPCS: 36415; 70450; 70551; 80048; 80053; 80061; 81003; 84484; 85025; 93005; 93306; 93880; 96365; 96366; 96372; 99284; G0378; J1650; J7050

== ENCOUNTER 2019-04-26 09:48 | Outpatient (CLI) | payer MEDICARE, OTHER ==
--- NOTE | 2019-04-26 11:31 | ULT ---
RIGHT UPPER QUADRANT ULTRASOUND: Date: 04/26/2019 HISTORY: Gallbladder mass. FINDINGS: There is a septated cyst in the left lobe of the liver measuring 1.5 cm. There is a 3.0 cm shadowing calculus in the gallbladder with associated sludge as well. No gallbladder wall thickening or pericho lecystic fluid is seen. The common duct measures 3.0 mm in diameter. The right lobe of the liver, rig ht kidney, and visualized portions of the pancreas are unremarkable. No free fluid is seen in Morison 's pouch. IMPRESSION: 1. Cholelithiasis. 2. Left hepatic lobe cyst. POS: OFF
== END 2019-04-26 09:49 | disposition home or self-care (01) ==
LOC: SCSULT 09:48
PROVIDERS: ATTEND Internal Medicine
DX: K82.8 Other specified diseases of gallbladder (principal); K80.20 Calculus of gallbladder without cholecystitis without obstruction; K76.89 Other specified diseases of liver
CPT/HCPCS: 76705

== ENCOUNTER 2019-10-01 18:35 | Inpatient (IN) | payer MEDICARE, OTHER ==
[2019-10-01] MEDS ORDERED: Ondansetron PF 4 MG/2 ML Vial IVP PRN (21:28)
[2019-10-01] MEDS ORDERED: Acetaminophen 650 MG Suppository PR PRN (21:54)
[2019-10-01] MEDS ORDERED: Acetaminophen 325 MG TAB PO PRN (21:54)
[2019-10-01 21:55] VITALS: BMI 26.0
[2019-10-01 22:21] LABS: Lactic Acid 2.8 mmol/L (0.5-2.2)
[2019-10-01 22:22] LABS: Anion Gap 14 mmol/L (10-20); BUN (Urea Nitrogen) 17 mg/dL (8.4-25.7); Calc. Creatinine Clearance 69 mL/min (70-130); Calcium 9.2 mg/dL (7.8-10.44); Carbon Dioxide 20 mmol/L (23-31); Chloride 103 mmol/L (98-107); Estimated GFR-MDRD Greater than 90; Glucose 168 mg/dL (83-110); Magnesium 2.1 mg/dL (1.6-2.6); Potassium 3.9 mmol/L (3.5-5.1); Sodium 133 mmol/L (136-145)
[2019-10-01] MEDS: Sodium Chloride 0.9% 1,000 ML IV SCH (22:29)
--- NOTE | 2019-10-01 22:39 | PDOC.HHP ---
Hospitalist HPI - History of Present Illness Abdominal pain and vomiting History of Present Illness: Patient presents with complaints of abdominal pain that started earlier today around noon. He states it was across his abdomen and felt like an aching burning pain. Reports having issues with gastritis in the past. He reports having excessive belching and sudden episode of vomiting. He initially presented to [place] ED where he was given a GI cocktail and also given Aspirin 324 mg. He was given 4 mg of Zofran. He states his pain fully resolved after the GI cocktail. While on the ambulance and being transferred here he says he had another episode of vomiting without any preceding nausea. He had some mild discomfort that quickly eased. He has had another episode of vomiting while in the ED just a few moments ago and reports having excessive belching prior. At present he does not feel nauseated and denies any abdominal pain. Reports feeling well in recent days. Has been eating and drinking as normal. [place] any changes with his stools. Has not had any hematemesis. No fevers or chills. No chest pain or shortness of breath. Has not been diaphoretic. No headaches or dizziness. He states if it werent for the sudden vomiting that occurs, he would feel "completely normal". ED Course: EKG done on arrival here showed T wave inversions involving the inferior leads and V3. HR 70, NSR. Hospitalist ROS - Review of Systems Constitutional: denies: fever, chills, sweats, weakness, malaise, other Eyes: denies: pain, vision change, conjunctivae inflammation, eyelid inflammation, redness, other ENT: denies: ear pain, ear discharge, nose pain, nose discharge, nose congestion , mouth pain, mouth swelling, throat pain, throat swelling, other Respiratory: denies: cough, dry, shortness of breath, hemoptysis, SOB with excertion, pleuritic pain, sputum, wheezing, other Cardiovascular: denies: chest pain, palpitations, orthopnea, paroxysmal noc. dyspnea, edema, light headedness, other Gastrointestinal: reports: vomiting, abdominal pain. denies: nausea, diarrhea, constipation, melena, hematochezia, other Genitourinary: denies: dysuria, frequency, incontinence, hematuria, retention, other Musculoskeletal: denies: neck pain, shoulder pain, arm pain, back pain, hand pain, leg pain, foot pain, other Skin: denies: rash, lesions, kay, bruising, other Neurological: denies: weakness, numbness, incoordination, change in speech, confusion, seizures, other Hospitalist History - Past Medical History Cardiac: reports: CAD, HTN Gastrointestinal: reports: GERD - Past Surgical History Past Surgical History: reports: Cataract Removal - Family History Family History: reports: no pertinent history - Social History Smoking Status: Former smoker Alcohol: reports: None Drugs: reports: none Living Situation: With Family Activity level: independent ambulation - Exam General Appearance: NAD Eye: PERRL, anicteric sclera ENT: normocephalic atraumatic, no oropharyngeal lesions, moist mucosa Neck: supple, symmetric, no lymphadenopathy Heart: RRR, no murmur, no gallops, no rubs, normal peripheral pulses Respiratory: CTAB, no wheezes, no rales, no ronchi, normal chest expansion Gastrointestinal: soft, non-tender, non-distended, normal bowel sounds, no palpable masses, no guarding, no rigidity Extremities: no edema Skin: normal turgor, no lesions, no rashes Neurological: cranial nerve grossly intact, normal sensation to touch, no weakness, no focal deficits Musculoskeletal: normal tone, normal strength, no muscle wasting Psychiatric: normal affect, normal behavior, A&O x 3 Hospitalist Results - Labs Result Diagrams: 10/01/19 21:58 Lab results: Sodium 133 mmol/L (136-145) L 10/01/19 21:58 Potassium 3.9 mmol/L (3.5-5.1) 10/01/19 21:58 Chloride 103 mmol/L (98-107) 10/01/19 21:58 Carbon Dioxide 20 mmol/L (23-31) L 10/01/19 21:58 BUN 17 mg/dL (8.4-25.7) 10/01/19 21:58 Creatinine 0.73 mg/dL (0.7-1.3) 10/01/19 21:58 Glucose 168 mg/dL (83-110) H 10/01/19 21:58 Lactic Acid 2.8 mmol/L (0.5-2.2) H 10/01/19 21:58 Calcium 9.2 mg/dL (7.8-10.44) 10/01/19 21:58 Troponin I 0.015 ng/mL (< 0.028) 10/01/19 19:36 Hospitalist H&P A/P - Problem (1) Abdominal pain Code(s): R10.9 - UNSPECIFIED ABDOMINAL PAIN Status: Resolved (2) Vomiting bile Code(s): R11.14 - BILIOUS VOMITING Status: Acute (3) GERD (gastroesophageal reflux disease) Code(s): K21.9 - GASTRO-ESOPHAGEAL REFLUX DISEASE WITHOUT ESOPHAGITIS Status: Chronic (4) CAD (coronary artery disease) Code(s): I25.10 - ATHSCL HEART DISEASE OF [place] CORONARY ARTERY W/O ANG PCTRS Status: Chronic (5) Essential (primary) hypertension Code(s): I10 - ESSENTIAL (PRIMARY) HYPERTENSION Status: Chronic - Plan Plan: Patient admitted for ACS rule out. Denies any chest pain at all today. Trop negative. Continue to trend troponin. Generalized abdominal discomfort resolved. Bilious vomiting x 3 today, once in ED on arrival, once when en route via ambulance and once a few moments ago. Vomiting sudden without warning, at times with preceding belching. No tenderness on exam and LFTS as well as lipase normal. Will obtain GB US and monitor LFTs. Check lactic acid and repeat electrolytes. Clear liquid diet, advance as tolerated. Famotidine 20 mg IV BID. Monitor BP. Reconcile home medications once verified. CODE STATUS FULL Surrogate decision maker is his Liane Porter. PCP: Dr. Steinberg.
[2019-10-01 23:35] LABS: Troponin I Less than 0.010 ng/mL (< 0.028)
[2019-10-02 04:46] LABS: #Lymphocytes 1.2 thou/uL (1.20-3.40); #Monocytes 1.1 thou/uL (0.11-0.59); #Neutrophils 10.3 thou/uL (1.40-6.50); %Basophils 0.2 % (0.0-1.0); %Eosinophils 0.1 % (0.0-10.0); %Lymphocytes 9.4 % (21.0-51.0); %Monocytes 8.4 % (0.0-10.0); %Neutrophils 81.9 % (42.0-75.0); Hemoglobin 13.1 g/dL (14.0-18.0); Mean Corpuscular HGB CONC 34.5 g/dL (32.0-36.0); Mean Corpuscular Hemoglobin 32.1 pg (27.0-31.0); Mean Corpuscular Volume 93.2 fL (78.0-98.0); Mean Platelet Volume 8.4 fL (7.4-10.4); Platelet Count 179 thou/uL (130-400); RBC Distribution Width 11.8 % (11.5-14.5); Red Blood Cell (RBC) Count 4.09 mill/uL (4.70-6.10); White Blood Cell (WBC) Count 12.5 thou/uL (4.8-10.8)
[2019-10-02 05:06] LABS: ALT (SGPT) 14 U/L (8-55); AST (SGOT) 15 U/L (5-34); Albumin 3.7 g/dL (3.4-4.8); Alkaline Phosphatase 82 U/L (40-110); Anion Gap 12 mmol/L (10-20); BUN (Urea Nitrogen) 15 mg/dL (8.4-25.7); Bilirubin, Total 0.8 mg/dL (0.2-1.2); Calc. Creatinine Clearance 73 mL/min (70-130); Calcium 8.7 mg/dL (7.8-10.44); Carbon Dioxide 23 mmol/L (23-31); Chloride 105 mmol/L (98-107); Estimated GFR-MDRD Greater than 90; Globulin 2.9 g/dL (2.4-3.5); Glucose 150 mg/dL (83-110); Potassium 3.8 mmol/L (3.5-5.1); Protein, Total 6.6 g/dL (5.8-8.1); Sodium 136 mmol/L (136-145)
[2019-10-02] MEDS: Famotidine/PF 20 mg/2ml Vial SLOW IVP SCH ×2 (09:15→21:30)
--- NOTE | 2019-10-02 09:22 | ULT ---
RIGHT UPPER QUADRANT ULTRASOUND: Date: 10/02/2019 HISTORY: Abdominal pain, nausea and vomiting. COMPARISON: 04/26/2019. FINDINGS: Somewhat heterogeneous liver echogenicity, evidence for nonspecific hepatic parenchymal process. Bord peyman distended gallbladder with some diffuse gallbladder wall thickening and at least one large gal lstone without evidence for pericholecystic fluid. Common bile duct 0.5 cm. Visualized pancreas and r ight kidney are unremarkable. The previously noted left lobe of liver septated cyst was not demonstra larry on this study. IMPRESSION: 1. Cholelithiasis with at least one large gallstone with borderline distended gallbladder and abnorm al gallbladder wall thickening, but no pericholecystic fluid, with little change from prior study. 2. Coarse liver echogenicity. 3. Other findings as above. POS: RRE
[2019-10-02] MEDS: Sodium Chloride 0.9% 1,000 ML IV SCH (14:05)
--- NOTE | 2019-10-02 16:53 | PDOC.HOSPP ---
- Subjective Encounter Date: 10/02/19 Encounter Time: 10:00 Subjective: no overnight events. this morning, feeling better, abdominal pain resolved, and ambulating on floor without difficulty. - Objective Vital Signs & Weight: Vital Signs (12 hours) Temp Pulse Resp BP Pulse Ox 10/02/19 16:27 98.0 F 80 13 177/76 H 95 10/02/19 11:44 98.0 F 72 12 164/73 H 96 10/02/19 07:24 98.7 F 74 12 159/69 H 93 L Weight Weight 156 lb 11.2 oz I&O: 10/01/19 10/02/19 10/03/19 06:59 06:59 06:59 Intake Total 727.5 Output Total 400 1760 Balance 327.5 -1760 Result Diagrams: 10/02/19 04:34 10/02/19 04:34 Hospitalist ROS - Review of Systems Constitutional: denies: fever, chills, sweats Respiratory: denies: cough, dry, shortness of breath Cardiovascular: denies: chest pain, palpitations, orthopnea Gastrointestinal: denies: nausea, vomiting, abdominal pain, diarrhea Genitourinary: denies: dysuria, frequency, incontinence, hematuria Musculoskeletal: denies: neck pain, shoulder pain, arm pain - Medication Medications: Active Medications Generic Name Dose Route Start Last Admin Trade Name Freq PRN Reason Stop Dose Admin Famotidine 20 mg 10/02/19 09:00 10/02/19 09:15 Pepcid SLOW IVP 20 mg Q12HR JOSEFINA Administration Sodium Chloride 1,000 mls @ 65 mls/hr 10/01/19 22:00 10/02/19 14:05 Normal Saline 0.9% IV 1,000 mls .[id number] JOSEFINA Administration Sodium Chloride 10 ml 10/01/19 21:54 10/02/19 09:15 Flush - Normal Saline IVF 10 ml Q12HR PRN Administration Saline Flush - Exam General Appearance: NAD, awake alert Neck: no JVD Heart: RRR, no murmur, no gallops, no rubs Respiratory: CTAB, no wheezes, no rales, no ronchi Gastrointestinal: soft, non-tender, non-distended, normal bowel sounds Extremities: no edema Psychiatric: normal affect, normal behavior, A&O x 3 Hosp A/P - Plan #biliary colic #cholelithiasis -U/s showing large gallbladder stone with borderline enlarged gallbladder -consulted surgery to evaluate for cholecystectomy remaining management unchanged. medications reconciled Full code
[2019-10-02] MEDS: Isosorbide Mononitrate 20 MG TAB PO SCH (21:30)
[2019-10-03 04:45] LABS: INR-International Normal Ratio 1.2; PTT 34.8 sec (22.9-36.1)
[2019-10-03 05:10] LABS: Anion Gap 11 mmol/L (10-20); BUN (Urea Nitrogen) 12 mg/dL (8.4-25.7); Calc. Creatinine Clearance 81 mL/min (70-130); Calcium 7.9 mg/dL (7.8-10.44); Carbon Dioxide 19 mmol/L (23-31); Chloride 109 mmol/L (98-107); Estimated GFR-MDRD Greater than 90; Glucose 100 mg/dL (83-110); Sodium 135 mmol/L (136-145)
[2019-10-03] MEDS: Sodium Chloride 0.9% 1,000 ML IV SCH (06:05)
[2019-10-03] MEDS: Lisinopril 10 MG TAB PO SCH (08:20)
[2019-10-03] MEDS: Isosorbide Mononitrate 20 MG TAB PO SCH ×2 (08:20→21:48)
[2019-10-03] MEDS: Aspirin 81 mg Enteric Coated Tablet PO SCH (08:20)
[2019-10-03] MEDS: Amlodipine 10 MG TAB PO SCH (08:20)
[2019-10-03] MEDS: Famotidine/PF 20 mg/2ml Vial SLOW IVP SCH (08:20)
[2019-10-03] MEDS ORDERED: Meropenem 1 GM in Sodium Chloride 0.9% 100 ML IVPB SCH (10:00)
--- NOTE | 2019-10-03 11:48 | CON ---
DATE OF CONSULTATION: REASON FOR CONSULTATION: Abdominal pain. HISTORY OF PRESENT ILLNESS: Mr. 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 He states that he was in his normal state of health except for diminished appetite for the past couple of weeks when he had sudden onset of diffuse abdominal pain, nausea, and vomiting on the day of his admission to the hospital. He was taken by ambulance to the hospital and admitted for cardiac workup. His troponins have been negative. He states the pain was across his lower chest and he had multiple episodes of bilious emesis, which he has never had before. He denies hematemesis or coffee-grounds emesis. He denies fevers or chills. He states that the pain unrelented later that same day and he has been pain free and without nausea since that time. He had a gallbladder ultrasound, which showed a stone in the gallbladder and some mild thickening of the gallbladder wall without pericholecystic fluid. He has unknown diagnosis of gallstones in April of this year when he underwent a CT of the abdomen and pelvis, which showed some abnormalities in the gallbladder area, which was followed up with an ultrasound, and at that point, however, his wall thickness was normal. His bile duct is normal in caliber on both ultrasounds. PAST MEDICAL HISTORY: History of coronary artery disease, status post [place] in his early 60s, he states that he was managed medically and has not seen a telecommunication engineer since that time; hypertension, for which he was admitted to the hospital last year for hypertensive urgency, which he states it is now under control; and stomach problems attributed to ulcers. PAST SURGICAL HISTORY: Cataracts. No abdominal surgeries. FAMILY HISTORY: Diabetes. SOCIAL HISTORY: He is a former heavy smoker and drinker, but quit both of these in his 30s and has lived ever since. He does not use any drugs[place] and has an independent lifestyle. REVIEW OF SYSTEMS: Ten system review of systems is negative except per HPI. He specifically denies dyspnea on exertion or exertional angina, and states that he can walk over a mile on flat ground and climb a flight of stairs without any problems. LABORATORY DATA: White count was mildly elevated. LFTs were normal. Hematocrit is 38, and coags are unremarkable. IMAGING STUDIES: Ultrasound images are reviewed and I agree with the written report. ASSESSMENT: Cholelithiasis and cholecystitis. I suspect that his chronic stomach issues may be due to his gallstones rather than gastritis. I recommended laparoscopic cholecystectomy if he is an acceptable medical risk for surgery. He does have a history of coronary artery disease, status post [place] in his 60s and has not seen a telecommunication engineer in decades. He did have some inverted T-waves on his EKG and I have asked the hospitalist to evaluate him for his risks for surgery. In the meantime, I have recommended that he be started on antibiotics. The patient himself is somewhat hesitant to undergo surgery and states that he may prefer on medical treatment alone. However, he is at risk for continued episodes of abdominal pain, nausea, and vomiting, and complications of cholecystitis and cholelithiasis, and if he is an acceptable surgical candidate, I would recommend that he consider laparoscopic cholecystectomy. After he undergoes his cardiac evaluation, I will reassess and revisit with the patient and will decide whether to proceed with surgical or medical management of his cholecystitis. Job ID: [id number]
--- NOTE | 2019-10-03 12:31 | PDOC.HOSPP ---
- Subjective Encounter Date: 10/03/19 Encounter Time: 15:00 Subjective: Patient seen and examined for acute cholecystitis. Abd pain improving. No CP. No new complaints. No overnight events - Objective Vital Signs & Weight: Vital Signs (12 hours) Temp Pulse Resp BP BP Pulse Ox 10/03/19 11:02 98.0 F 72 13 145/72 H 95 10/03/19 07:00 98.6 F 72 12 133/60 97 10/03/19 03:16 98.5 F 67 20 135/63 93 L Weight Weight 155 lb 9.6 oz I&O: 10/02/19 10/03/19 10/04/19 06:59 06:59 06:59 Intake Total 727.5 2010 Output Total 400 2455 Balance 327.5 -445 Result Diagrams: 10/04/19 04:15 10/04/19 04:15 Hospitalist ROS - Review of Systems Respiratory: denies: cough, dry, shortness of breath, hemoptysis, SOB with excertion, pleuritic pain, sputum, wheezing, other Cardiovascular: denies: chest pain, palpitations, orthopnea, paroxysmal noc. dyspnea, edema, light headedness, other - Medication Medications: Active Medications Generic Name Dose Route Start Last Admin Trade Name Freq PRN Reason Stop Dose Admin Amlodipine Besylate 10 mg 10/03/19 09:00 10/03/19 08:20 Norvasc PO 10 mg DAILY JOSEFINA Administration Aspirin 81 mg 10/03/19 09:00 10/03/19 08:20 Ecotrin PO 81 mg DAILY JOSEFINA Administration Famotidine 20 mg 10/02/19 09:00 10/03/19 08:20 Pepcid SLOW IVP 20 mg Q12HR JOSEFINA Administration Sodium Chloride 1,000 mls @ 65 mls/hr 10/01/19 22:00 10/03/19 06:05 Normal Saline 0.9% IV 1,000 mls .[id number] JOSEFINA Administration Isosorbide Mononitrate 20 mg 10/02/19 21:00 10/03/19 08:20 Ismo PO 20 mg BID JOSEFINA Administration Lisinopril 10 mg 10/03/19 09:00 10/03/19 08:20 Zestril PO 10 mg DAILY JOSEFINA Administration Metoprolol Succinate 50 mg 10/02/19 21:00 10/03/19 08:20 Toprol Xl PO 50 mg BID JOSEFINA Administration Pantoprazole Sodium 40 mg 10/03/19 09:00 10/03/19 08:21 Protonix PO 40 mg DAILY JOSEFINA Administration Sodium Chloride 10 ml 10/01/19 21:54 10/02/19 21:31 Flush - Normal Saline IVF 10 ml Q12HR PRN Administration Saline Flush - Exam General Appearance: NAD Heart: RRR, no gallops Respiratory: no wheezes, no ronchi Gastrointestinal: non-tender, no guarding, no rigidity Extremities: no cyanosis Neurological: no new deficit Hosp A/P - Plan DVT proph w/SCDs Abd pain/severe sepsis due to Acute cholecystitis - POA Cholelithiases Lactic acidosis Hyponatremia CAD HTN GERD PLAN: Add Meropenem Cont IVF Await Cardiac clearance Cont betablockers Cont other meds as above Surg input appreciated
[2019-10-03 12:39] LABS: SARS-CoV-2 MS2 Positive; SARS-CoV-2 N Gene Negative; SARS-CoV-2 S Gene Negative; SARS-CoV-2 orf1ab Negative
[2019-10-03] MEDS ORDERED: ADENOSINE 60 MG/20 ML VIAL ONE (12:59)
[2019-10-03] MEDS: MEROPENEM 1 GM/50 ML 1 GM in Premix Bag 1 BAG IVPB SCH ×2 (16:26→21:48)
--- NOTE | 2019-10-03 16:54 | NM ---
NUCLEAR MEDICINE MYOCARDIAL PEFUSIONION EXAM: Date: 10-03-2019 History: Pre-operative patient, chest pain with coronary artery disease and hypertension. Technique: SPECT imaging of the left ventricular myocardium obtained during rest and stress following the intravenous administration of 10.0 and 28.4 mCi Technetium 99M Sestamibi respectively. FINDINGS: TID is 1.13. Left ventricular ejection fraction is estimated at 72% with an EDV of 64 ml and an ESV o f 18 ml. There is a probable small fixed defect at the level of the cardiac apex which may signify an area of prior infarction. Fixed defect in the region of the inferior wall suggests prior infarction as well. No reversible defect is appreciated on this examination. Wall motion appears grossly unremarkable. IMPRESSION: No definite reversible defect seen. POS: [facility]
--- NOTE | 2019-10-03 19:45 | CON ---
DATE OF CONSULTATION: 10/03/2019 INDICATION FOR CONSULTATION: An 88-year-old gentleman with history of chest pain and abdominal pain. He has been found to have choledocholithiasis. He was admitted to the hospital after he complained of some chest discomfort. He has had some long history of GI problems with gastroesophageal reflux disease and peptic ulcer disease. He underwent abdominal ultrasound and was found to have choledocholithiasis. It was felt to be possibly a cause of his pain, but what he said was he has had abdominal pain for many years, but what he described on Friday was some pain across his chest area. He presented to the emergency room, was given nitroglycerin and the pain then resolved. He has had no further pain since that time. He does have a history of possible myocardial infarction in the past. He was seen by Dr. Epstein, who did a stress test, but he did not have any history of having a cardiac catheterization. He was treated medically. He spent 3 days in the hospital in [place] in 1984. He has not had any significant cardiac workup for the last several years. He did see someone in [place], but then has not seem them for multiple years. He did have cardiac enzymes at this admission, which showed no evidence of any myocardial infarction. Troponin Is are negative. At this time, he is having no chest pain. He may need to undergo cholecystectomy. He will need to be ruled out for underlying ischemia since he did have a chest discomfort and does have some history of coronary artery disease in the past. PAST MEDICAL HISTORY: Significant for coronary artery disease, possible myocardial infarction in 1984, gastroesophageal reflux disease, and hypertension. He has had cataract surgery. He has peptic ulcer disease. He has choledocholithiasis. FAMILY HISTORY: Unremarkable for any early heart disease. There is some family history of diabetes. SOCIAL HISTORY: He is . He has no history of alcohol or tobacco abuse. He remains very active. ALLERGIES: PENICILLIN. MEDICATIONS: Include; 1. Aspirin. 2. ISMO 20 mg a day. 3. Pantoprazole 20 mg b.i.d. 4. Metoprolol 50 mg b.i.d. 5. Lisinopril 10 mg once a day. REVIEW OF SYSTEMS: 12-point review of systems unremarkable except what is noted in the history of present illness. PHYSICAL EXAMINATION: GENERAL: Reveals a blood pressure 145/72; heart rate is in the 60s to 70s, shows a sinus rhythm; respiratory rate is 13. He is afebrile. HEENT: Shows the head to be normocephalic and atraumatic. Carotid pulses are present. There are no bruits. CHEST: Clear to auscultation without rales, rhonchi, or wheezing. CARDIOVASCULAR: Reveals a regular rate and rhythm. Normal S1, S2. There is no S3 or S4. There are no significant murmurs, heaves, thrills, bruits, or rubs. ABDOMEN: Soft and nontender. Positive bowel sounds are present. I cannot elicit any tenderness. EXTREMITIES: Show no clubbing, cyanosis, or edema. Pedal pulses are present. NEUROLOGIC: The patient appears to be fully intact. SKIN: Warm and dry. LABORATORY DATA: Shows a sodium of 135, potassium 4.0, BUN was 12, creatinine 0.62. Blood sugar was 100, previously was 168. WBC is 12.5, which is elevated and hemoglobin 13.1 with a platelet count of 179,000. Cardiac enzymes are negative. DIAGNOSTIC STUDIES: EKG shows a normal sinus rhythm with a heart rate of 48 beats per minute with nonspecific ST-segment changes, but no evidence of previous myocardial infarction with T-wave inversions inferiorly. This may indicate old anterior myocardial infarction. IMPRESSION: 1. An 88-year-old gentleman with history of chest pain and history of coronary artery disease in the past. Would advise he undergo some type of stress testing prior to proceeding with elective cholecystectomy. I will also obtain an echocardiogram for evaluation of left ventricular systolic function. 2. Choledocholithiasis. This may be the etiology of his chest pain, but will need to be ruled out for underlying ischemia prior to undergoing general anesthesia and abdominal surgery. 3. Hypertension. This is under good control at this time. We will continue his metoprolol as well as his lisinopril and ISMO and also aspirin. We more than happy to continue to follow the patient with you, but would prefer that he undergo some type of stress testing prior to proceeding with his surgery. Job ID: [id number]
[2019-10-04] MEDS: Sodium Chloride 0.9% 1,000 ML IV SCH ×2 (02:27→21:34)
[2019-10-04 04:39] LABS: #Basophils 0.1 thou/uL (0.0-0.2); #Eosinphils 0.6 thou/uL (0.0-0.7); #Lymphocytes 1.7 thou/uL (1.20-3.40); #Monocytes 1.2 thou/uL (0.11-0.59); %Basophils 0.6 % (0.0-1.0); %Lymphocytes 18.2 % (21.0-51.0); %Monocytes 12.4 % (0.0-10.0); %Neutrophils 62.9 % (42.0-75.0); Hemoglobin 11.8 g/dL (14.0-18.0); Mean Corpuscular HGB CONC 34.5 g/dL (32.0-36.0); Mean Corpuscular Hemoglobin 32.6 pg (27.0-31.0); Mean Corpuscular Volume 94.4 fL (78.0-98.0); Mean Platelet Volume 8.5 fL (7.4-10.4); Platelet Count 165 thou/uL (130-400); RBC Distribution Width 11.7 % (11.5-14.5); Red Blood Cell (RBC) Count 3.61 mill/uL (4.70-6.10); White Blood Cell (WBC) Count 9.5 thou/uL (4.8-10.8)
[2019-10-04] MEDS: MEROPENEM 1 GM/50 ML 1 GM in Premix Bag 1 BAG IVPB SCH ×3 (04:54→21:34)
[2019-10-04 04:59] LABS: ALT (SGPT) 22 U/L (8-55); AST (SGOT) 51 U/L (5-34); Albumin 3.1 g/dL (3.4-4.8); Alkaline Phosphatase 67 U/L (40-110); Anion Gap 7 mmol/L (10-20); BUN (Urea Nitrogen) 19 mg/dL (8.4-25.7); Bilirubin, Total 0.8 mg/dL (0.2-1.2); Calc. Creatinine Clearance 76 mL/min (70-130); Calcium 7.7 mg/dL (7.8-10.44); Carbon Dioxide 23 mmol/L (23-31); Chloride 109 mmol/L (98-107); Estimated GFR-MDRD Greater than 90; Globulin 2.5 g/dL (2.4-3.5); Glucose 93 mg/dL (83-110); Lipase 6 U/L (8-78); Magnesium 2.2 mg/dL (1.6-2.6); Potassium 3.4 mmol/L (3.5-5.1); Protein, Total 5.6 g/dL (5.8-8.1); Sodium 136 mmol/L (136-145)
[2019-10-04] MEDS ORDERED: Fentanyl 100 MCG/2 ML VIAL ONE (06:48)
[2019-10-04] MEDS: Lisinopril 10 MG TAB PO SCH (08:27)
[2019-10-04] MEDS: Isosorbide Mononitrate 20 MG TAB PO SCH ×2 (08:27→20:47)
[2019-10-04] MEDS: Amlodipine 10 MG TAB PO SCH (08:27)
[2019-10-04] MEDS: Aspirin 81 mg Enteric Coated Tablet PO SCH (08:35)
[2019-10-04] MEDS ORDERED: Meperidine HCl/PF 25 MG/ML VIAL SLOW IVP PRN (09:01)
[2019-10-04] MEDS ORDERED: Promethazine HCl 25 MG/ML VIAL SLOW IVP PRN (09:01)
[2019-10-04] MEDS ORDERED: Ondansetron HCl/PF 4 MG/2 ML Vial IVP PRN (09:01)
[2019-10-04] MEDS ORDERED: Promethazine HCl 25 MG/ML VIAL IM PRN (09:01)
[2019-10-04] MEDS ORDERED: Lidocaine 1% w/Epinephrine 1:100K 20 ML VIAL ONE (09:23)
[2019-10-04] MEDS ORDERED: Bupivacaine 0.25% HCL 30 ML VIAL ONE (09:23)
[2019-10-04] MEDS ORDERED: Dexamethasone 20 MG/5 ML VIAL ONE (11:46)
[2019-10-04] MEDS ORDERED: Glycopyrrolate 0.2 MG/ML 5 ML SYRINGE ONE (11:46)
[2019-10-04] MEDS ORDERED: Ondansetron PF 4 MG/2 ML Vial ONE (11:46)
[2019-10-04] MEDS ORDERED: EPHEDRINE 25 MG/5 ML SYRINGE ONE (11:46)
[2019-10-04] MEDS ORDERED: PHENYLEPHRINE-NS 100 MCG/ML 10 ML SYRINGE ONE (11:46)
[2019-10-04] MEDS ORDERED: PROPOFOL 200 MG/20 ML VIAL ONE (11:46)
[2019-10-04] MEDS ORDERED: Lidocaine 1% PF 5 ML VIAL ONE (11:46)
[2019-10-04] MEDS ORDERED: Rocuronium Bromide 10 MG/ML (10ML VIAL) ONE (11:46)
[2019-10-04] MEDS ORDERED: traMADol HCl 50 MG TAB PO PRN (11:55)
[2019-10-04] MEDS ORDERED: Acetaminophen 500 MG TAB PO PRN (11:56)
[2019-10-04] MEDS ORDERED: Potassium Chloride 20 MEQ/100 ML PREMIX BAG IVPB SCH (12:15)
--- NOTE | 2019-10-04 12:22 | PDOC.OP ---
Operative Note - Operative Note Operative Note: DATE OF PROCEDURE: 10/04/2019 PROCEDURES: Laparoscopic cholecystectomy. SURGEON: Judy Ledezma M.D. PREOPERATIVE DIAGNOSIS: Cholelithiasis and cholecystitis POSTOPERATIVE DIAGNOSIS: Cholelithiasis and cholecystitis FINDINGS: Hydropic obstructed distended thick-walled edematous gallbladder with extensive omental adhesions, consistent with acute on chronic cholecystitis. Large stone impacted in neck of gallbladder. HISTORY: Patient with symptoms of biliary colic and ultrasound findings worrisome for cholecystitis. Laparoscopic cholecystectomy was recommended for symptomatic relief. Preoperative LFTs were normal and bile duct was normal caliber on preoperative imaging. PROCEDURE: After informed consent was obtained and appropriate preoperative antibiotics were administered, the patient was taken to the operating room and placed in the supine position and general endotracheal anesthesia was administered. The stomach was decompressed with an OG tube and the abdomen was prepped and draped in standard sterile fashion. Local anesthesia was infused to the skin and subcutaneous tissues at the umbilical level. A transverse skin incision was made. The fascia was elevated and a Veress needle was placed into the abdominal cavity without difficulty. Opening pressure was less than 5 and carbon dioxide gas easily insufflated to an intra-abdominal pressure of 15, which the patient tolerated well. The Veress needle was withdrawn and a [place] port advanced under direct vision. The abdominal cavity was carefully examined. There was no evidence of Veress needle or of trocar injury. Local anesthesia was infused to the skin and subcutaneous tissues at the epigastric, right upper quadrant, and right lateral abdominal sites and trocars were placed under direct vision of the laparoscope. The fundus of the gallbladder was barely visible among extensive omental adhesions. These omental adhesions were grasped and retracted laterally and dissected off of the edge of the gallbladder exposing the fundus. This was too taut to grasp and therefore was aspirated with removal of over 100 mL of clear colorless hydropic bile. This was sent for Gram stain and culture. After aspiration the fundus was able to be grasped and retracted superiorly. The remaining omental adhesions were stripped off of the gallbladder exposing the infundibulum. There was a large stone impacted in the neck. The infundibulum was grasped and retracted laterally. There was a large node of Calot obscuring the triangle of kilo. This was resected and the cystic artery and duct were clearly identified and traced to their insertion in the gallbladder. Critical view of safety was obtained and the cystic duct and artery were clipped and divided between clips. The gallbladder was then dissected free of the gallbladder bed using hook electrocautery. Due to the inflamed nature of the gallbladder it did tear during dissection but it was able to be completely resected and all of the spilled bile was suctioned out. No stones were spilled. The upper portion of the gallbladder tore off of the liver bed and there was some oozing from the hepatic parenchyma which was treated with electrocautery. Prior to complete removal of the gallbladder from the gallbladder bed, the area of the cystic duct and artery stumps was examined. The clips were in good position completely across these structures and there was no bleeding and no leakage of bile. The gallbladder was then placed into an EndoCatch bag and drawn out through the epigastric incision. This required dilation of the fascia and extension of the skin incision due to the thickened nature of the gallbladder. The epigastric trocar was replaced and the operative site irrigated. The patient had continued oozing from the area where the gallbladder had torn off of the liver bed, which continued to slowly ooze despite repeated electrocautery. Of asked to was obtained and placed in the liver bed and Surgicel held and direct pressure with hemostasis obtained.. The epigastric trocar was removed and the fascia closed under direct laparoscopic vision with a 0 Vicryl suture on a GraNee needle in a [id number] manner with excellent technical result. The right upper quadrant and right lateral abdominal trocars were removed and hemostasis verified. Due to the patient's thin body habitus the fascia at the umbilicus was visible and this was closed with a single 0 Vicryl suture on a UR 6 needle under direct vision. Carbon dioxide gas was allowed to desufflate through the umbilical trocar which was then removed. The skin incisions were closed with 4-0 subcuticular Monocryl sutures and Dermabond dressings were placed. The patient was extubated and taken to the recovery room in good condition. There were no complications. ESTIMATED BLOOD LOSS: Minimal. SPECIMEN : Gallbladder and contents. Bile sent for Gram stain and culture.
--- NOTE | 2019-10-04 14:54 | PDOC.CPN ---
- Subjective Date: 10/04/19 Time: 08:25 Interval history: The pt seen and examined. No overnight events. No cardiac complaints. - Objective Allergies/Adverse Reactions: Allergies Allergy/AdvReac Type Severity Reaction Status Date / Time Penicillins Allergy Unknown Verified 10/01/19 21:51 Visit Medications: Current Medications Acetaminophen (Tylenol) 650 mg PO Q4H PRN PRN Reason: Headache/Fever/Mild Pain (1-3) Acetaminophen (Tylenol) 650 mg ND Q4H PRN PRN Reason: Headache/Fever/Mild Pain (1-3) Acetaminophen (Tylenol) 500 mg PO ONE PRN PRN Reason: Mild-Moderate Pain (1-5) Stop: 10/04/19 23:00 Last Admin: 10/04/19 12:36 Dose: 500 mg Amlodipine Besylate (Norvasc) 10 mg PO DAILY [facility] Last Admin: 10/04/19 08:27 Dose: 10 mg Aspirin (Ecotrin) 81 mg PO DAILY [facility] Last Admin: 10/04/19 08:35 Dose: Not Given Sodium Chloride (Normal Saline 0.9%) 1,000 mls @ 65 mls/hr IV .[id number] [facility] Last Admin: 10/04/19 02:27 Dose: 1,000 mls Meropenem 1 gm/ Device 50 mls @ 100 mls/hr IVPB Q8HR [facility] Last Admin: 10/04/19 04:54 Dose: 50 mls Isosorbide Mononitrate (Ismo) 20 mg PO BID [facility] Last Admin: 10/04/19 08:27 Dose: 20 mg Lisinopril (Zestril) 10 mg PO DAILY [facility] Last Admin: 10/04/19 08:27 Dose: 10 mg Metoprolol Succinate (Toprol Xl) 50 mg PO BID [facility] Last Admin: 10/04/19 08:27 Dose: 50 mg Ondansetron HCl (Zofran) 4 mg IVP Q6H PRN PRN Reason: Nausea/Vomiting Pantoprazole Sodium (Protonix) 40 mg PO DAILY [facility] Last Admin: 10/04/19 08:27 Dose: 40 mg Potassium Chloride (Kcl) 20 meq IVPB NOW [facility] Stop: 10/04/19 15:00 Last Admin: 10/04/19 12:36 Dose: 20 meq Sodium Chloride (Flush - Normal Saline) 10 ml IVF Q12HR PRN PRN Reason: Saline Flush Last Admin: 10/02/19 21:31 Dose: 10 ml Sodium Chloride (Flush - Normal Saline) 10 ml IVF PRN PRN PRN Reason: Saline Flush Tramadol HCl (Ultram) 50 mg PO Q4H PRN PRN Reason: Moderate to Severe Pain (6-10) Vital Signs & Weight: Vital Signs Temp Pulse Resp BP BP Pulse Ox 10/04/19 12:19 97.5 F L 73 18 128/60 95 10/04/19 08:27 71 10/04/19 08:00 94 L 10/04/19 07:50 98.2 F 71 18 170/72 H 94 L 10/04/19 03:04 97.9 F 68 20 144/67 H 93 L Weight 156 lb 12.8 oz - Physical Exam General: alert & oriented x3 HEENT: mucus membranes moist Neck: supple neck Cardiac: regular rate and rhythm, S1/S2 Extremities: no edema - Labs Result Diagrams: 10/04/19 04:15 10/04/19 04:15 Troponin/CKMB Troponin I Less than 0.010 ng/mL (< 0.028) 10/01/19 22:56 - Assessment/Plan Assessment/Plan: 1. Acute Cholelithiasis and cholecystitis with s/p lap cholecystectomy on 2019 2. CAD with Rajni stress test on 10/03/2019 with No ischemia with EF 72% 3. HTN - stable MAR reviewed Pt. seen and eval. by me. He is back from the OR after cholecystectmy. He had a short run of SVT this PM otherwise he is doing well. miiram
--- NOTE | 2019-10-04 16:45 | PDOC.HOSPP ---
- Subjective Encounter Date: 10/04/19 Encounter Time: 14:00 Subjective: Patient seen and examined for Cholecystitis. Some discomfort over the surgical site. No N/V. No new complaints. No overnight events - Objective Vital Signs & Weight: Vital Signs (12 hours) Temp Pulse Resp BP Pulse Ox 10/04/19 12:19 97.5 F L 73 18 128/60 95 10/04/19 08:27 71 10/04/19 08:00 94 L 10/04/19 07:50 98.2 F 71 18 170/72 H 94 L Weight Weight 156 lb 12.8 oz I&O: 10/03/19 10/04/19 10/05/19 06:59 06:59 06:59 Intake Total 2009 920 Output Total 2455 Balance -445 920 Result Diagrams: 10/04/19 04:15 10/04/19 04:15 EKG Reviewed by me: Yes (Tele SR) Hospitalist ROS - Review of Systems Respiratory: denies: cough, dry, shortness of breath, hemoptysis, SOB with excertion, pleuritic pain, sputum, wheezing, other Cardiovascular: denies: chest pain, palpitations, orthopnea, paroxysmal noc. dyspnea, edema, light headedness, other - Medication Medications: Active Medications Generic Name Dose Route Start Last Admin Trade Name Freq PRN Reason Stop Dose Admin Acetaminophen 500 mg 10/04/19 11:56 10/04/19 12:36 Tylenol PO 10/04/19 23:00 500 mg ONE PRN Administration Mild-Moderate Pain (1-5) Amlodipine Besylate 10 mg 10/03/19 09:00 10/04/19 08:27 Norvasc PO 10 mg DAILY JOSEFINA Administration Aspirin 81 mg 10/03/19 09:00 10/04/19 08:35 Ecotrin PO Not Given DAILY JOSEFINA Sodium Chloride 1,000 mls @ 65 mls/hr 10/01/19 22:00 10/04/19 02:27 Normal Saline 0.9% IV 1,000 mls .[id number] JOSEFINA Administration Meropenem 1 gm/ Device 50 mls @ 100 mls/hr 10/03/19 14:00 10/04/19 14:52 IVPB 50 mls Q8HR JOSEFINA Administration Isosorbide Mononitrate 20 mg 10/02/19 21:00 10/04/19 08:27 Ismo PO 20 mg BID JOSEFINA Administration Lisinopril 10 mg 10/03/19 09:00 10/04/19 08:27 Zestril PO 10 mg DAILY JOSEFINA Administration Metoprolol Succinate 50 mg 10/02/19 21:00 10/04/19 08:27 Toprol Xl PO 50 mg BID JOSEFINA Administration Pantoprazole Sodium 40 mg 10/03/19 09:00 10/04/19 08:27 Protonix PO 40 mg DAILY JOSEFINA Administration Sodium Chloride 10 ml 10/01/19 21:54 10/02/19 21:31 Flush - Normal Saline IVF 10 ml Q12HR PRN Administration Saline Flush - Exam General Appearance: NAD Heart: RRR, no gallops Respiratory: no wheezes, no ronchi Gastrointestinal: non-distended, normal bowel sounds, no guarding, no rigidity Extremities: no cyanosis Neurological: no new deficit Psychiatric: normal affect, A&O x 3 Hosp A/P - Plan plan discussed w/ family (spouse), PT/OT, DVT proph w/SCDs Abd pain/severe sepsis due to suspectedAcute cholecystitis -s/p Lap nabeel 10/03 Cholelithiases Lactic acidosis Hypokalemia Hyponatremia CAD HTN GERD PLAN: Cont IV Meropenem Replace Potassium Cont IVF - dc when tolerating PO Echo and stress test reviewed Cont Toprol and other meds as above
[2019-10-04] MEDS: Potassium Chloride 10 MEQ TAB PO SCH (19:01)
[2019-10-05 04:34] LABS: #Monocytes 1.1 thou/uL (0.11-0.59); #Neutrophils 10.3 thou/uL (1.40-6.50); %Basophils 0.2 % (0.0-1.0); %Eosinophils 0.1 % (0.0-10.0); %Lymphocytes 8.2 % (21.0-51.0); %Monocytes 8.6 % (0.0-10.0); %Neutrophils 82.9 % (42.0-75.0); Hemoglobin 12.6 g/dL (14.0-18.0); Mean Corpuscular HGB CONC 34.1 g/dL (32.0-36.0); Mean Corpuscular Hemoglobin 32.7 pg (27.0-31.0); Mean Corpuscular Volume 95.7 fL (78.0-98.0); Mean Platelet Volume 8.7 fL (7.4-10.4); Platelet Count 203 thou/uL (130-400); RBC Distribution Width 11.7 % (11.5-14.5); Red Blood Cell (RBC) Count 3.85 mill/uL (4.70-6.10); White Blood Cell (WBC) Count 12.5 thou/uL (4.8-10.8)
[2019-10-05 04:58] LABS: ALT (SGPT) 46 U/L (8-55); AST (SGOT) 64 U/L (5-34); Albumin 3.4 g/dL (3.4-4.8); Alkaline Phosphatase 72 U/L (40-110); Anion Gap 13 mmol/L (10-20); BUN (Urea Nitrogen) 18 mg/dL (8.4-25.7); Bilirubin, Total 0.6 mg/dL (0.2-1.2); Calc. Creatinine Clearance 76 mL/min (70-130); Carbon Dioxide 19 mmol/L (23-31); Chloride 108 mmol/L (98-107); Estimated GFR-MDRD Greater than 90; Globulin 2.7 g/dL (2.4-3.5); Glucose 148 mg/dL (83-110); Protein, Total 6.1 g/dL (5.8-8.1); Sodium 136 mmol/L (136-145)
[2019-10-05] MEDS: MEROPENEM 1 GM/50 ML 1 GM in Premix Bag 1 BAG IVPB SCH (05:28)
[2019-10-05] MEDS: Amlodipine 10 MG TAB PO SCH (08:45)
[2019-10-05] MEDS: Potassium Chloride 10 MEQ TAB PO SCH (08:45)
[2019-10-05] MEDS: Isosorbide Mononitrate 20 MG TAB PO SCH (08:46)
[2019-10-05] MEDS: Aspirin 81 mg Enteric Coated Tablet PO SCH (08:46)
[2019-10-05] MEDS: Lisinopril 10 MG TAB PO SCH (08:46)
--- NOTE | 2019-10-05 08:57 | PDOC.HOSPP ---
- Subjective Encounter Date: 10/05/19 Encounter Time: 11:05 Subjective: Mr. Porter is feeling well this morning for follow up of cholecystitis s/p cholecystectomy yesterday. He reports some mild abdominal soreness, but otherwise denies any nausea, vomiting, crampy abdominal pain, chest pain, cough , shortness of breath or fever. He was able to eat breakfast and walk around the hallway without difficulty. - Objective Vital Signs & Weight: Vital Signs (12 hours) Temp Pulse Resp BP Pulse Ox 10/05/19 08:39 97.2 F L 83 17 168/81 H 96 10/05/19 03:34 98.5 F 80 16 155/77 H 80 L 10/05/19 00:00 79 Weight Weight 157 lb 1.6 oz I&O: 10/04/19 10/05/19 10/06/19 06:59 06:59 06:59 Intake Total 920 1020 Output Total 875 Balance 920 145 Result Diagrams: 10/05/19 03:51 10/05/19 03:51 Additional Labs: Laboratory Tests 10/02/19 17:40 COVID-19 PCR Not Detected EKG Reviewed by me: Yes (Tele SR) Hospitalist ROS - Review of Systems Respiratory: denies: cough, dry, shortness of breath, hemoptysis, SOB with excertion, pleuritic pain, sputum, wheezing, other Cardiovascular: denies: chest pain, palpitations, orthopnea, paroxysmal noc. dyspnea, edema, light headedness, other All other systems reviewed; all pertinent +/- noted in HPI/Subj - Medication Medications: Active Medications Generic Name Dose Route Start Last Admin Trade Name Ambrocio PRN Reason Stop Dose Admin Amlodipine Besylate 10 mg 10/03/19 09:00 10/05/19 08:45 Norvasc PO 10 mg DAILY JOSEFINA Administration Aspirin 81 mg 10/03/19 09:00 10/05/19 08:46 Ecotrin PO 81 mg DAILY JOSEFINA Administration Sodium Chloride 1,000 mls @ 65 mls/hr 10/01/19 22:00 10/04/19 21:34 Normal Saline 0.9% IV 1,000 mls .[id number] JOSEFINA Administration Isosorbide Mononitrate 20 mg 10/02/19 21:00 10/05/19 08:46 Ismo PO 20 mg BID JOSEFINA Administration Lisinopril 10 mg 10/03/19 09:00 10/05/19 08:46 Zestril PO 10 mg DAILY JOSEFINA Administration Metoprolol Succinate 50 mg 10/02/19 21:00 10/05/19 08:46 Toprol Xl PO 50 mg BID JOSEFINA Administration Pantoprazole Sodium 40 mg 10/03/19 09:00 10/05/19 08:46 Protonix PO 40 mg DAILY JOSEFINA Administration Potassium Chloride 10 meq 10/04/19 17:00 10/05/19 08:45 Klor-Con 10 PO 10 meq BID-WM JOSEFINA Administration Saccharomyces Boulardii 250 mg 10/05/19 09:00 10/05/19 08:46 Florastor PO 250 mg DAILY JOSEFINA Administration Sodium Chloride 10 ml 10/01/19 21:54 10/02/19 21:31 Flush - Normal Saline IVF 10 ml Q12HR PRN Administration Saline Flush - Exam General Appearance: NAD, awake alert Eye: PERRL, anicteric sclera ENT: normocephalic atraumatic Neck: supple, symmetric Heart: RRR, no murmur, no gallops, no rubs Respiratory: CTAB, no wheezes, no rales, no ronchi Gastrointestinal: soft, non-tender, non-distended, normal bowel sounds Gastrointestinal - other findings: incisions healing well without redness, warmth, or discharge Extremities: no cyanosis, no edema Skin: normal turgor Psychiatric: normal affect, normal behavior, A&O x 3 Hosp A/P - Plan DVT proph w/SCDs Abd pain/severe sepsis due to suspected Acute cholecystitis -s/p Lap nabeel 10/03 Cholelithiases Lactic acidosis Hypokalemia Hyponatremia CAD HTN GERD PLAN: Change IV Meropenem to PO Omnicef/Flagyl Cont PO Potassium DC IVF Cont Toprol and other meds as above DC Planning
[2019-10-05] MEDS ORDERED: Saccharomyces boulardii 250 MG CAP PO SCH (09:00)
[2019-10-05] MEDS ORDERED: metroNIDAZOLE 500 MG TAB PO SCH (09:00)
--- NOTE | 2019-10-05 09:35 | PDOC.GSPN ---
Surgery Progress Note: Subj - Subjective Narrative: Patient feels well today. He is tolerating his diet and his pain is under control. His vital signs and labs look okay and his incisions look good. From a surgical standpoint he is ready for discharge. He can follow-up with me in 2 to 3 weeks. He was instructed to lift no more than 20 pounds for 2 weeks and to avoid fried greasy and fatty foods for couple months. Surgery Progress Note: Obj - Vital signs Vital signs: Vital Signs - Most Recent Temp Pulse Resp BP Pulse Ox 97.2 F L 83 17 168/81 H 96 10/05/19 08:39 10/05/19 08:39 10/05/19 08:39 10/05/19 08:39 10/05/19 08:39 Surgery Progress Note: Results - Labs Result Diagrams: 10/05/19 03:51 10/05/19 03:51 Lab results: Laboratory Results - last 24 hr 10/05/19 10/05/19 03:51 03:51 WBC 12.5 H RBC 3.85 L Hgb 12.6 L Hct 36.8 L MCV 95.7 MCH 32.7 H MCHC 34.1 RDW 11.7 Plt Count 203 MPV 8.7 Neutrophils % 82.9 H Lymphocytes % 8.2 L Monocytes % 8.6 Eosinophils % 0.1 Basophils % 0.2 Neutrophils # 10.3 H Lymphocytes # 1.0 L Monocytes # 1.1 H Eosinophils # 0.0 Basophils # 0.0 Sodium 136 Potassium 4.0 Chloride 108 H Carbon Dioxide 19 L Anion Gap 13 BUN 18 Creatinine 0.66 L Estimated GFR (MDRD) Greater than 90 Glucose 148 H Calcium 8.0 Total Bilirubin 0.6 AST 64 H ALT 46 Alkaline Phosphatase 72 Serum Total Protein 6.1 Albumin 3.4 Globulin 2.7 Albumin/Globulin Ratio 1.3
[2019-10-05] MEDS ORDERED: Cefdinir 300 MG CAP PO SCH ×2 (09:45→21:00)
[2019-10-05] MEDS ORDERED: Fluconazole 100 MG TAB PO SCH (09:45)
--- NOTE | 2019-10-05 10:55 | PDOC.CPN ---
- Subjective Date: 10/05/19 Time: 11:00 Interval history: The pt seen and examined. No overnight events. No cardiac complaints. - Objective Allergies/Adverse Reactions: Allergies Allergy/AdvReac Type Severity Reaction Status Date / Time Penicillins Allergy Unknown Verified 10/01/19 21:51 Visit Medications: Current Medications Acetaminophen (Tylenol) 650 mg PO Q4H PRN PRN Reason: Headache/Fever/Mild Pain (1-3) Acetaminophen (Tylenol) 650 mg [place] Q4H PRN PRN Reason: Headache/Fever/Mild Pain (1-3) Amlodipine Besylate (Norvasc) 10 mg PO DAILY [facility] Last Admin: 10/05/19 08:45 Dose: 10 mg Aspirin (Ecotrin) 81 mg PO DAILY [facility] Last Admin: 10/05/19 08:46 Dose: 81 mg Cefdinir (Omnicef) 300 mg PO BID [facility] Cefdinir (Omnicef) 300 mg PO 0945 [facility] Stop: 10/05/19 11:00 Last Admin: 10/05/19 10:19 Dose: 300 mg Fluconazole (Diflucan) 100 mg PO DAILY [facility] Fluconazole (Diflucan) 100 mg PO 0945 [facility] Stop: 10/05/19 11:00 Last Admin: 10/05/19 10:19 Dose: 100 mg Isosorbide Mononitrate (Ismo) 20 mg PO BID [facility] Last Admin: 10/05/19 08:46 Dose: 20 mg Lisinopril (Zestril) 10 mg PO DAILY [facility] Last Admin: 10/05/19 08:46 Dose: 10 mg Metoprolol Succinate (Toprol Xl) 50 mg PO BID [facility] Last Admin: 10/05/19 08:46 Dose: 50 mg Metronidazole (Flagyl) 500 mg PO TID [facility] Last Admin: 10/05/19 09:29 Dose: 500 mg Ondansetron HCl (Zofran) 4 mg IVP Q6H PRN PRN Reason: Nausea/Vomiting Pantoprazole Sodium (Protonix) 40 mg PO DAILY [facility] Last Admin: 10/05/19 08:46 Dose: 40 mg Potassium Chloride (Klor-Con 10) 10 meq PO BID-[facility] Last Admin: 10/05/19 08:45 Dose: 10 meq Saccharomyces Boulardii (Florastor) 250 mg PO DAILY [facility] Last Admin: 10/05/19 08:46 Dose: 250 mg Sodium Chloride (Flush - Normal Saline) 10 ml IVF Q12HR PRN PRN Reason: Saline Flush Last Admin: 10/02/19 21:31 Dose: 10 ml Sodium Chloride (Flush - Normal Saline) 10 ml IVF PRN PRN PRN Reason: Saline Flush Tramadol HCl (Ultram) 50 mg PO Q4H PRN PRN Reason: Moderate to Severe Pain (6-10) Vital Signs & Weight: Vital Signs Temp Pulse Resp BP Pulse Ox 10/05/19 08:39 97.2 F L 83 17 168/81 H 96 10/05/19 03:34 98.5 F 80 16 155/77 H 80 L 10/05/19 00:00 79 Weight 157 lb 1.6 oz - Physical Exam General: alert & oriented x3 HEENT: mucus membranes moist Neck: supple neck Cardiac: regular rate and rhythm, S1/S2 Lungs: clear to auscultation Neuro: cranial nerve 2-12 intact Extremities: no edema - Labs Result Diagrams: 10/05/19 03:51 10/05/19 03:51 Troponin/CKMB Troponin I Less than 0.010 ng/mL (< 0.028) 10/01/19 22:56 - Telemetry Sinus rhythms and dysrhythmias: sinus rhythm - Assessment/Plan Assessment/Plan: 1. Acute Cholelithiasis and cholecystitis with s/p lap cholecystectomy on 2019 - the lesions are CECI without any erythema, drainage, or swellings. 2. CAD with Rajni stress test on 10/03/2019 with No ischemia with EF 72% 3. HTN - stable MAR reviewed * From Cardiac standpoint, the pt is stable to d/c home. * Since Cardiology service consult was ordered for surgical clearance, the pt should f/u with his PCP and Dr Ledezma's office.
[2019-10-05 11:34] VITALS: BP 124/67; TEMP 97.8
--- NOTE | 2019-10-05 12:37 | DIS ---
DATE OF ADMISSION: 10/03/2019 DATE OF DISCHARGE: 10/05/2019 DISCHARGE DISPOSITION: Home. FOLLOWUP: 1. Follow up with primary care physician, Dr. Steinberg, in 1 week. 2. Follow up with Dr. Ledezma in 7 days. ALLERGIES: THE PATIENT IS ALLERGIC TO PENICILLIN. THE PATIENT WAS SEEN AND EXAMINED ON THE DAY OF DISCHARGE. DENIES ANY NEW COMPLAINTS. NO NAUSEA, VOMITING, OR DIARRHEA REPORTED. ABDOMINAL PAIN HAS SIGNIFICANTLY IMPROVED. DISCHARGE MEDICATIONS: 1. Omnicef 300 mg b.i.d. for 5 days. 2. Flagyl 500 mg 3 times daily for 5 days. 3. Diflucan 100 mg daily for 3 more days. All other home medications were left unchanged. ALLERGIES: THE PATIENT IS ALLERGIC TO PENICILLIN. BRIEF HOSPITAL COURSE: The patient is an 88-year-old male with hypertension and coronary artery disease, presented to the hospital with abdominal pain and vomiting. His workup was consistent with acute on chronic cholecystitis. He was started on empiric antibiotics. After Cardiology clearance, the patient underwent laparoscopic cholecystectomy. Postoperatively, he has done well. He has been cleared by consultants for discharge. Please note that his bile fluid culture was negative for any organism. However , it showed yeast species. For this reason, fluconazole was added for 4 days per Infectious Disease recommendation. DIAGNOSTIC TESTS: 1. On October 03, 2019, the patient underwent Cardiolite stress test that was negative for reversible ischemia. 2. Echocardiogram on October 04, 2019, showed ejection fraction 55% to 60% with mild tricuspid regurgitation. 3. Abdominal ultrasound on October 02, 2019, showed cholelithiasis with distended gallbladder and gallbladder wall thickening. INPATIENT PROCEDURES: On October 04, 2019, the patient underwent laparoscopic cholecystectomy. There was a large stone impacted in the neck of the gallbladder. The patient understands the above plan of care and appears stable for discharge. FINAL DIAGNOSIS: Abd pain/severe sepsis due to Acute on chronic cholecystitis s/p Lap cholecystectomy Cholelithiases Lactic acidosis Hypokalemia Hyponatremia CAD HTN GERD Job ID: [id number] [facility]ITALFaustino
[2019-10-05] MEDS ORDERED: Cipro 250 MG TAB PO SCH (20:00)
[2019-10-06] MEDS ORDERED: Fluconazole 100 MG TAB PO SCH (09:00)
== END 2019-10-05 13:05 | disposition home or self-care (01) | DRG 854 ==
LOC: ERS 18:35 → 2NO 19:38 → OBSVTOIN 10-03 09:56
PROVIDERS: ADMIT Internal Medicine; ATTEND Internal Medicine
PROC: 0FT44ZZ Resection of Gallbladder, Percutaneous Endoscopic Approach (ICD-10-PCS; principal; 2019-10-04)
DX: A41.9 Sepsis, unspecified organism (principal); K80.13 Calculus of gallbladder with acute and chronic cholecystitis with obstruction; K82.1 Hydrops of gallbladder; E87.2 Acidosis; E87.1 Hypo-osmolality and hyponatremia; I47.1 Supraventricular tachycardia; Z11.59 Encounter for screening for other viral diseases; R65.20 Severe sepsis without septic shock; I25.10 Atherosclerotic heart disease of native coronary artery without angina pectoris; I10 Essential (primary) hypertension; K27.9 Peptic ulcer, site unspecified, unspecified as acute or chronic, without hemorrhage or perforation; K21.9 Gastro-esophageal reflux disease without esophagitis; E87.6 Hypokalemia; Z88.0 Allergy status to penicillin; Z87.891 Personal history of nicotine dependence; Z79.899 Other long term (current) drug therapy; Z79.82 Long term (current) use of aspirin; I25.2 Old myocardial infarction
CPT/HCPCS: 36415; 76705; 78452; 80048; 80053; 83605; 83690; 83735; 85025; 85610; 85730; 87070; 87205; 87635; 88304; 93005; 93017; 93306; 96361; 96374; 96376; A9500; G0378; J0153; J1100; J2185; J2405; J2704; J3010; J3480; S0020; S0028; U0003